=== PATIENT | male | born 1970 | race Caucasian/White ===

== ENCOUNTER 2022-07-16 19:57 | Inpatient (IN) | payer BC ==
[2022-07-16] MEDS ORDERED: SODIUM CHLORIDE 0.9% 1,000 ML IV STA (20:22)
--- NOTE | 2022-07-16 20:35 | ED ---
General Adult HPI - General Chief complaint: Seizure Stated complaint: Seizure Time Seen by Provider: 07/16/22 20:22 Source: patient Mode of arrival: EMS - History of Present Illness Initial comments: Dictation was produced using [employer] dictation software. please excuse any grammatical, word or spelling errors. Chief Complaint: 51-year-old male presents emergency department after seizure History of Present Illness: Patient is a 51-year-old male has past medical history of hypertension. Patient is brought to the emergency department after having witnessed seizure. Patient has a seizure at home witnessed by son. Son states that it was approximately 10 seconds. He was postictal per EMS several minutes after the seizure. Patient was recently admitted to the hospital for seizure. According to EMR patient patient's seizure was likely secondary to h ypovolemic hyponatremia and perhaps alcohol withdrawal. Patient had a EKG that was unremarkable. Patient states he woke up with some nausea this morning. Patient states that he does not drink alcohol excessively. Denies any pain complaints. No shortness of breath. The ROS documented in this emergency department record has been reviewed and confirmed by me. Those systems with pertinent positive or negative responses have been documented in the HPI. All other systems are other negative and/or noncontributory. PHYSICAL EXAM: General Impression: Alert and oriented x3, not in acute distress HEENT: Normocephalic atraumatic, extra-ocular movements intact, pupils equal and reactive to light bilaterally, mucous membranes moist, right lateral tongue avulsion Cardiovascular: Heart regular rate and rhythm Chest: Able to complete full sentences, no retractions, no tachypnea Abdomen: abdomen soft, non-tender, non-distended, no organomegaly Musculoskeletal: Pulses present and equal in all extremities, no peripheral edema Motor: no focal deficits noted Neurological: CN II-XII grossly intact, no focal motor or sensory deficits noted Skin: Intact with no visualized rashes Psych: Normal affect and mood ED course: 51-year-old male presents to the emergency department for seizure. Patient was recently admitted to the hospital one month ago for seizure. According to EMR patient seizures secondary to a call withdrawal versus hyponatremia. He was not started on antiepileptic medications. Vital signs upon arrival are within acceptable limits. Laboratory evaluation obtained. CBC unremarkable. Metabolic panel shows sodium 120. Lactic acidosis 3.5 likely represents recent seizure. Urine drug screen is negative. Patient reevaluated bedside at 11:00 PM. Patient reports that he feels well. Case is discussed with nephrology who requests that sodium chloride IV fluids at 60 mL an hour and to do scheduled basic metabolic panel. Dr. Keys would like to be contacted when his sodium reaches is 126. Patient admitted to [facility] hospitalist group. Neurology consulted. Dr. Keys called back requested that patient have a metabolic panel drawn down if his sodium is less than when he initially arrived that patient be given 3% sodium. EKG interpretation: Ventricular rate 105, sinus tachycardia,. Interval 129, QS 105, QTC 422. No DC prolongation, no QTC prolongation, no ST or T-wave changes noted. EKG compared to 06/22/2022 showing no changes. Overall, this EKG is unremarkable - Related Data Home Medications Medication Instructions Recorded Confirmed Magnesium(Unknown) 1 tab PO DAILY 06/22/22 07/16/22 Rizatriptan Odt [Maxalt STORE STOCKER] 10 mg PO DAILY PRN 06/22/22 07/16/22 amLODIPine [Norvasc] 10 mg PO DAILY 06/22/22 07/16/22 Previous Rx's Medication Instructions Recorded Thiamine [Vitamin B-1] 100 mg PO DAILY tab 07/19/22 levETIRAcetam [Keppra] 500 mg PO Q12HR 30 Days #60 tab 07/19/22 Allergies Allergy/AdvReac Type Severity Reaction Status Date / Time No Known Allergies Allergy Verified 07/16/22 20:04 Review of Systems ROS Statement: Those systems with pertinent positive or pertinent negative responses have been documented in the HPI. ROS Other: All systems not noted in ROS Statement are negative. Past Medical History Past Medical History: Hypertension Additional Past Medical History / Comment(s): Migraine MATHIS, Essential tremor History of Any Multi-Drug Resistant Organisms: None Reported Past Surgical History: Unable to Obtain Additional Past Surgical History / Comment(s): vasecotmy Past Anesthesia/Blood Transfusion Reactions: No Reported Reaction Past Psychological History: No Psychological Hx Reported Smoking Status: Current every day smoker Past Alcohol Use History: Daily Past Drug Use History: None Reported - Past Family History Father Family Medical History: Dementia Additional Family Medical History / Comment(s): Father is 82 yrs old. Mother Family Medical History: Hypertension Additional Family Medical History / Comment(s): Mother is 79yrs old. Course Vital Signs 07/16/22 07/16/22 07/16/22 19:58 21:00 22:00 Temperature 97.9 F Pulse Rate 112 H 104 H 102 H Respiratory 18 16 16 Rate Blood Pressure 170/99 156/125 164/105 O2 Sat by Pulse 98 96 97 Oximetry 07/16/22 07/17/22 07/17/22 23:00 08:20 09:08 Temperature Pulse Rate 103 H 85 97 Respiratory 16 18 18 Rate Blood Pressure 117/96 160/84 149/73 O2 Sat by Pulse 96 98 96 Oximetry Medical Decision Making - Lab Data Result diagrams: 07/19/22 06:19 07/19/22 06:19 Lab Results 07/16/22 07/16/22 07/16/22 Range/Units 20:53 20:53 20:53 WBC 8.3 (3.8-10.6) k/uL RBC 3.98 L (4.30-5.90) m/uL Hgb 13.2 (13.0-17.5) gm/dL Hct 37.5 L (39.0-53.0) % MCV 94.3 (80.0-100.0) fL MCH 33.2 (25.0-35.0) pg MCHC 35.2 (31.0-37.0) g/dL RDW 11.5 (11.5-15.5) % Plt Count 108 L (150-450) k/uL MPV 7.4 Neutrophils % 88 % Lymphocytes % 4 % Monocytes % 7 % Eosinophils % 0 % Basophils % 0 % Neutrophils # 7.3 (1.3-7.7) k/uL Lymphocytes # 0.4 L (1.0-4.8) k/uL Monocytes # 0.6 (0-1.0) k/uL Eosinophils # 0.0 (0-0.7) k/uL Basophils # 0.0 (0-0.2) k/uL Sodium 120 L (137-145) mmol/L Potassium 3.6 (3.5-5.1) mmol/L Chloride 85 L (98-107) mmol/L Carbon Dioxide 25 (22-30) mmol/L Anion Gap 10 mmol/L BUN 3 L (9-20) mg/dL Creatinine 0.53 L (0.66-1.25) mg/dL Est GFR (CKD-EPI)AfAm >90 (>60 ml/min/1.73 sqM) Est GFR (CKD-EPI)NonAf >90 (>60 ml/min/1.73 sqM) Glucose 130 H (74-99) mg/dL Lactic Ac Sepsis Rflx Plasma Lactic Acid Edmond 3.5 H* (0.7-2.0) mmol/L Calcium 8.6 (8.4-10.2) mg/dL Magnesium 1.9 (1.6-2.3) mg/dL Total Bilirubin 1.2 (0.2-1.3) mg/dL AST 61 H (17-59) U/L ALT 50 H (4-49) U/L Alkaline Phosphatase 93 (38-126) U/L Total Protein 6.2 L (6.3-8.2) g/dL Albumin 4.2 (3.5-5.0) g/dL Urine Opiates Screen (NotDetected) Ur Oxycodone Screen (NotDetected) Urine Methadone Screen (NotDetected) Ur Propoxyphene Screen (NotDetected) Ur Barbiturates Screen (NotDetected) U Tricyclic Antidepress (NotDetected) Ur Phencyclidine Scrn (NotDetected) Ur Amphetamines Screen (NotDetected) U Methamphetamines Scrn (NotDetected) U Benzodiazepines Scrn (NotDetected) Urine Cocaine Screen (NotDetected) U Marijuana (THC) Screen (NotDetected) 07/16/22 07/16/22 Range/Units 21:33 21:45 WBC (3.8-10.6) k/uL RBC (4.30-5.90) m/uL Hgb (13.0-17.5) gm/dL Hct (39.0-53.0) % MCV (80.0-100.0) fL MCH (25.0-35.0) pg MCHC (31.0-37.0) g/dL RDW (11.5-15.5) % Plt Count (150-450) k/uL MPV Neutrophils % % Lymphocytes % % Monocytes % % Eosinophils % % Basophils % % Neutrophils # (1.3-7.7) k/uL Lymphocytes # (1.0-4.8) k/uL Monocytes # (0-1.0) k/uL Eosinophils # (0-0.7) k/uL Basophils # (0-0.2) k/uL Sodium (137-145) mmol/L Potassium (3.5-5.1) mmol/L Chloride (98-107) mmol/L Carbon Dioxide (22-30) mmol/L Anion Gap mmol/L BUN (9-20) mg/dL Creatinine (0.66-1.25) mg/dL Est GFR (CKD-EPI)AfAm (>60 ml/min/1.73 sqM) Est GFR (CKD-EPI)NonAf (>60 ml/min/1.73 sqM) Glucose (74-99) mg/dL Lactic Ac Sepsis Rflx Y Plasma Lactic Acid Edmond (0.7-2.0) mmol/L Calcium (8.4-10.2) mg/dL Magnesium (1.6-2.3) mg/dL Total Bilirubin (0.2-1.3) mg/dL AST (17-59) U/L ALT (4-49) U/L Alkaline Phosphatase (38-126) U/L Total Protein (6.3-8.2) g/dL Albumin (3.5-5.0) g/dL Urine Opiates Screen Not Detected (NotDetected) Ur Oxycodone Screen Not Detected (NotDetected) Urine Methadone Screen Not Detected (NotDetected) Ur Propoxyphene Screen Not Detected (NotDetected) Ur Barbiturates Screen Not Detected (NotDetected) U Tricyclic Antidepress Not Detected (NotDetected) Ur Phencyclidine Scrn Not Detected (NotDetected) Ur Amphetamines Screen Not Detected (NotDetected) U Methamphetamines Scrn Not Detected (NotDetected) U Benzodiazepines Scrn Not Detected (NotDetected) Urine Cocaine Screen Not Detected (NotDetected) U Marijuana (THC) Screen Not Detected (NotDetected) Disposition Clinical Impression: Seizure, Hyponatremia Disposition: ADMITTED IP TO THIS HOSP
[2022-07-16 21:06] LABS: Basophils % (A) 0 %; Eosinophils % (A) 0 %; HCT 37.5 % (39.0-53.0); HGB 13.2 gm/dL (13.0-17.5); Lymphocytes # (A) 0.4 k/uL (1.0-4.8); Lymphocytes % (A) 4 %; MCH 33.2 pg (25.0-35.0); MCHC 35.2 g/dL (31.0-37.0); MCV 94.3 fL (80.0-100.0); Mean Platelet Volume 7.4; Monocytes # (A) 0.6 k/uL (0-1.0); Monocytes % (A) 7 %; Neutrophils # (A) 7.3 k/uL (1.3-7.7); Neutrophils % (A) 88 %; Platelet Count 108 k/uL (150-450); RBC 3.98 m/uL (4.30-5.90); RDW 11.5 % (11.5-15.5); WBC 8.3 k/uL (3.8-10.6)
[2022-07-16 21:26] LABS: ALT 50 U/L (4-49); AST 61 U/L (17-59); African American GFR (CKD) >90 (>60 ml/min/1.73 sqM); Albumin 4.2 g/dL (3.5-5.0); Alkaline Phosphatase 93 U/L (38-126); Anion Gap 10 mmol/L; Blood Urea Nitrogen 3 mg/dL (9-20); Calcium 8.6 mg/dL (8.4-10.2); Carbon Dioxide 25 mmol/L (22-30); Chloride 85 mmol/L (98-107); Glucose 130 mg/dL (74-99); Magnesium 1.9 mg/dL (1.6-2.3); Non-African American GFR(CKD) >90 (>60 ml/min/1.73 sqM); Potassium 3.6 mmol/L (3.5-5.1); Sodium 120 mmol/L (137-145); Total Bilirubin 1.2 mg/dL (0.2-1.3); Total Protein 6.2 g/dL (6.3-8.2)
[2022-07-16 22:41] LABS: Amphetamine Screen,Urine Not Detected (NotDetected); Barbiturate Screen,Urine Not Detected (NotDetected); Benzodiazepines Screen,Urine Not Detected (NotDetected); Cocaine Screen,Urine Not Detected (NotDetected); Methadone Screen, Urine Not Detected (NotDetected); Opiate Screen,Urine Not Detected (NotDetected); Oxycodone Screen, Urine Not Detected (NotDetected); Phencyclidine Screen,Urine Not Detected (NotDetected); Tricyclic Antidepressant,Urine Not Detected (NotDetected); Urn Cannabinoid Scrn Not Detected (NotDetected)
[2022-07-16] MEDS ORDERED: NALOXONE 0.4 MG/ML 1 ML VIAL IV PRN (22:54)
[2022-07-16] MEDS ORDERED: ONDANSETRON 4 MG/2 ML VIAL IVP PRN (22:54)
[2022-07-16] MEDS ORDERED: SODIUM CHLORIDE 0.9% 1,000 ML IV SCH (23:00)
[2022-07-16 23:44] LABS: African American GFR (CKD) >90 (>60 ml/min/1.73 sqM); Anion Gap 8 mmol/L; Blood Urea Nitrogen 4 mg/dL (9-20); Calcium 8.9 mg/dL (8.4-10.2); Carbon Dioxide 25 mmol/L (22-30); Chloride 95 mmol/L (98-107); Glucose 117 mg/dL (74-99); Non-African American GFR(CKD) >90 (>60 ml/min/1.73 sqM); Potassium 3.6 mmol/L (3.5-5.1); Sodium 128 mmol/L (137-145)
[2022-07-17 02:29] LABS: African American GFR (CKD) >90 (>60 ml/min/1.73 sqM); Anion Gap 7 mmol/L; Blood Urea Nitrogen 3 mg/dL (9-20); Calcium 9.1 mg/dL (8.4-10.2); Carbon Dioxide 27 mmol/L (22-30); Chloride 96 mmol/L (98-107); Glucose 98 mg/dL (74-99); Non-African American GFR(CKD) >90 (>60 ml/min/1.73 sqM); Potassium 3.4 mmol/L (3.5-5.1); Sodium 130 mmol/L (137-145)
[2022-07-17] MEDS ORDERED: DEXTROSE 5%-0.9% NACL 1,000 ML IV SCH (02:30)
[2022-07-17 06:09] LABS: African American GFR (CKD) >90 (>60 ml/min/1.73 sqM); Anion Gap 6 mmol/L; Blood Urea Nitrogen 3 mg/dL (9-20); Calcium 8.7 mg/dL (8.4-10.2); Carbon Dioxide 28 mmol/L (22-30); Chloride 98 mmol/L (98-107); Glucose 95 mg/dL (74-99); Non-African American GFR(CKD) >90 (>60 ml/min/1.73 sqM); Potassium 3.5 mmol/L (3.5-5.1); Sodium 132 mmol/L (137-145)
[2022-07-17] MEDS ORDERED: POTASSIUM CHLORIDE ER 20 MEQ TAB.ER PO STA (07:12)
[2022-07-17] MEDS: DEXTROSE 5% IN WATER 1,000 ML IV SCH ×3 (09:02→23:04)
--- NOTE | 2022-07-17 10:09 | P.NPCON ---
History of Present Illness - Reason for Consult hyponatremia - History of Present Illness Reason for consultation: Hyponatremia History of present illness: Patient is a 51-year-old male seen in renal consultation for hyponatremia. Patient's sodium level on admission was 120 as of 07/16/2022 at 8:53 PM. Patient received 1 L bolus of normal saline and was subsequently started on normal saline at 60 mL an hour. Patient states he did have a brief seizure prior to admission. No seizures since in the hospital. Sodium level about 3 hours later came back at 128 and I advised to stop the normal saline and start D5W at 50 mL an hour. However this was never done and I'm not sure why. This morning patient's sodium level is 132. I have started him on D5W at 1 50 mL an hour. Patient states his oral intake has been poor the last few days. He had been vomiting prior to admission. No diarrhea. Denies recent alcohol abuse. He has been drinking quite a bit of fluids including 2 bottles of Gatorade in 3- 4 bottles of water on a daily basis. He denies use of nonsteroidals. Denies history of malignancy. Denies use of thiazide diuretics. No chest pain or shortness of breath. Good urine output. No hematuria. Denies history of kidney disease. Vital signs are stable. General: Awake. No acute distress. HEENT: Head exam is unremarkable. LUNGS: Breath sounds decreased. HEART: Rate and Rhythm are regular. ABDOMEN: Soft, no distention. EXTREMITITES: No edema. Past Medical History Past Medical History: Hypertension Additional Past Medical History / Comment(s): Migraine MATHIS, Essential tremor History of Any Multi-Drug Resistant Organisms: None Reported Past Surgical History: Unable to Obtain Additional Past Surgical History / Comment(s): vasecotmy Past Anesthesia/Blood Transfusion Reactions: No Reported Reaction Past Psychological History: No Psychological Hx Reported Smoking Status: Current every day smoker Past Alcohol Use History: Daily Past Drug Use History: None Reported - Past Family History Father Family Medical History: Dementia Additional Family Medical History / Comment(s): Father is 82 yrs old. Mother Family Medical History: Hypertension Additional Family Medical History / Comment(s): Mother is 79yrs old. Medications and Allergies Home Medications Medication Instructions Recorded Confirmed Type Magnesium(Unknown) 1 tab PO DAILY 06/22/22 07/16/22 History Rizatriptan Odt [Maxalt RESERVE OPERATOR] 10 mg PO DAILY PRN 06/22/22 07/16/22 History amLODIPine [Norvasc] 10 mg PO DAILY 06/22/22 07/16/22 History Allergies Allergy/AdvReac Type Severity Reaction Status Date / Time No Known Allergies Allergy Verified 07/16/22 20:04 Physical Exam Vitals: Vital Signs Temp Pulse Resp BP Pulse Ox 07/17/22 09:08 97 18 149/73 96 07/17/22 08:20 85 18 160/84 98 07/16/22 23:00 103 H 16 117/96 96 07/16/22 22:00 102 H 16 164/105 97 07/16/22 21:00 104 H 16 156/125 96 07/16/22 19:58 97.9 F 112 H 18 170/99 98 Intake and Output 07/16/22 07/17/22 07/17/22 22:59 06:59 14:59 Output Total 900 Balance -900 Output: Urine 900 Other: Weight 68.039 kg Results - Lab Results Most recent lab results Calcium 8.7 mg/dL (8.4-10.2) 07/17/22 05:41 Magnesium 1.9 mg/dL (1.6-2.3) 07/16/22 20:53 07/16/22 20:53 07/17/22 05:41 Assessment and Plan Plan: Assessment: 1. Hypovolemic hyponatremia with component of poor solute intake. Sodium level was 120 on admission on 07/16/2022 at 8:53 PM. This morning it is 132. 2. Hypokalemia from poor intake. 3. Seizure prior to admission. Likely from hyponatremia. 4. Benign hypertension. Currently stable. Plan: Maintain D5W at 150 mL an hour. Potassium replaced. Check magnesium level as well. Repeat sodium level at 11:30 AM. Check serum and urine osmolality and urine sodium level. Check TSH. Thank you for the consultation. I will continue to follow patient with you during his hospital stay.
[2022-07-17 10:37] LABS: Magnesium 1.9 mg/dL (1.6-2.3)
--- NOTE | 2022-07-17 14:16 | P.CNNES ---
History of Present Illness Consult date: 07/17/22 Requesting physician: Weston Alcantara Reason for Consult: seizure History of Present Illness: This is a 51-year-old gentleman with history of one-time episode of seizure and was felt was provoked due to hyponatremia and alcohol withdrawal, hypertension alcohol use presented emergency department on 07/16/2022 for a witnessed seizure. Some of the history is from the patient's son who is at bedside. The patient stated that he was at home with his son and then that the patient noticed that he's having some abdominal pain and had nausea and vomiting. Then went on the couch to sit and the next thing he remembers EMS. Per the son the patient was having shaking of all extremities lasting 7-10 seconds and then he was post ictal for possibly about 7-10 minutes. Patient had a tongue bite over the right lateral side. Denies any urinary or bowel incontinence to his knowledge. Per the patient is last drink was probably Wednesday or Wednesday and he has been drinking 1-212 ounce of alcohol. He drinks about 4 of 16 ounce of water daily and in past was drinking more water but has been trying to cut down. He has been cutting down on alcohol use. Of note the patient was evaluated by Dr. Mcdonough on 06/23/2022 because of a new onset seizure and he felt was provoked due to hyponatremia and alcohol withdrawal. The routine EEGs reported as normal. Please refer to his notes for further details. She stated that the he probably had in the springtime of 2021 at passing out episode and possible seizure since he does not recall what transpired while he was at work. He denies any family history of seizures. Some of the workup during this hospital visit consisted of: Patient is afebrile. Initial white blood cells 8.3 on presentation. Initial sodium is 120 and most recent sodium is 132 Initial glucose level is 130 Ammonia 23 Urine drug screen is not detected. Review of Systems Review of system: The 12 point system was reviewed and apparent positive and negative per HPI. Past Medical History Past Medical History: Hypertension Additional Past Medical History / Comment(s): Migraine MATHIS, Essential tremor History of Any Multi-Drug Resistant Organisms: None Reported Past Surgical History: Unable to Obtain Additional Past Surgical History / Comment(s): vasecotmy Past Anesthesia/Blood Transfusion Reactions: No Reported Reaction Past Psychological History: No Psychological Hx Reported Additional Psychological History / Comment(s): Pt resides alone unless his son is over to visit every other weekend. Pt is independent. Smoking Status: Current every day smoker Past Alcohol Use History: Daily Additional Past Alcohol Use History / Comment(s): Pt started smoking in 1988 and is a ppd smoker. pt states he drinks occasionally, 2-4 beers when he does drink but states he does not drink on a daily basis Past Drug Use History: None Reported - Past Family History Father Family Medical History: Dementia Additional Family Medical History / Comment(s): Father is 82 yrs old. Mother Family Medical History: Hypertension Additional Family Medical History / Comment(s): Mother is 79yrs old. Medications and Allergies Home Medications Medication Instructions Recorded Confirmed Type Magnesium(Unknown) 1 tab PO DAILY 06/22/22 07/16/22 History Rizatriptan Odt [Maxalt SWAHILI TEACHER] 10 mg PO DAILY PRN 06/22/22 07/16/22 History amLODIPine [Norvasc] 10 mg PO DAILY 06/22/22 07/16/22 History Allergies Allergy/AdvReac Type Severity Reaction Status Date / Time No Known Allergies Allergy Verified 07/16/22 20:04 Physical Examination - Vital Signs Vital Signs: Vital Signs Temp Pulse Pulse Resp BP BP Pulse Ox 07/17/22 10:44 96.5 F L 96 16 139/85 97 07/17/22 09:08 97 18 149/73 96 07/17/22 08:20 85 18 160/84 98 07/16/22 23:00 103 H 16 117/96 96 07/16/22 22:00 102 H 16 164/105 97 07/16/22 21:00 104 H 16 156/125 96 07/16/22 19:58 97.9 F 112 H 18 170/99 98 Intake and Output 07/16/22 07/17/22 07/17/22 22:59 06:59 14:59 Output Total 900 Balance -900 Output: Urine 900 Other: Weight 68.039 kg 68.039 kg GENERAL: The patient is lying in bed and is not in acute distress. CHEST: The heart rate is regular rate rhythm. No murmurs to auscultation. LUNG: Clear to auscultation bilaterally no wheezing noted throughout. Not labored breathing. ABDOMEN/GI: Bowel sounds present in all 4 quadrants. No tenderness to palpation throughout. NEUROLOGICAL: Higher mental function: The patient is awake, alert, oriented to self, place and time. Patient is following commands. No aphasia and no neglect. Cranial nerves: The pupils are round, equal and reactive to light and accommodation. Visual jama are full to confrontation throughout. Extraocular movement is intact no nystagmus is noted. Facial sensation is normal to touch throughout. The facial strength is normal throughout. Hearing is normal bilaterally to hand rub. Tongue is right lateral tongue bite nando. Move tongue midline and moved [id number] without any difficulty. No dysarthria is noted. Shoulder shrug is normal bilaterally. Motor: The strength is 5 over 5 throughout. Normal tone and bulk. Cerebellum: Normal finger to nose bilaterally. Sensation: Sensation is normal to touch throughout. Reflexes (right/left): 2+ throughout. Plantars are downgoing bilaterally. Results - Laboratory Findings CBC and BMP: 07/16/22 20:53 07/17/22 10:12 Abnormal Lab Findings: Abnormal Labs 07/16/22 07/16/22 07/16/22 20:53 20:53 20:53 RBC 3.98 L Hct 37.5 L Plt Count 108 L Lymphocytes # 0.4 L Sodium 120 L Potassium Chloride 85 L BUN 3 L Creatinine 0.53 L Glucose 130 H Osmolality Plasma Lactic Acid Edmond 3.5 H* AST 61 H ALT 50 H Total Protein 6.2 L 07/16/22 07/17/22 07/17/22 23:16 01:43 05:41 RBC Hct Plt Count Lymphocytes # Sodium 128 L 130 L 132 L Potassium 3.4 L Chloride 95 L 96 L BUN 4 L 3 L 3 L Creatinine 0.50 L 0.54 L 0.58 L Glucose 117 H Osmolality Plasma Lactic Acid Edmond AST ALT Total Protein 07/17/22 10:12 RBC Hct Plt Count Lymphocytes # Sodium 132 L Potassium Chloride BUN Creatinine Glucose Osmolality 272 L Plasma Lactic Acid Edmond AST ALT Total Protein Assessment and Plan Assessment: Recurrent Seizure seems possibly provoked due to hyponatremia (on presentation 120). Had prior seizure in 3rd week of june 2022 (EEG was reported as normal). It was felt provoked due to hyponatremia and alcohol withdrawal and stated possible has seizure in spring where he does not recall what transpired. Moderate hyponatremia: Na is 120 on presentation. Unsure exactly cause (possibly polydipsia and diet intake)--improving Alcohol use and been cutting down and last drink was this Wednesday or Wednesday. Plan: I ordered a repeat routine EEG and MRI Brain w/ and w/o I started the patient on Keppra 500 mg every 12 hours since patient continues to have recurrent seizures. Started on thiamine 100mg daily. Placed on seizure precaution and on seizure pads. Nephrology is consulted for hyponatremia. Will differ rest of medical management to primary team. Per the [place] DMV patient is to avoid driving for 6 month because of his seizure. To avoid the [place], avoid using her admission here and that is warm unassisted and this was relayed to the patient. Thank you for the consultation. Gerald Ford M.D. Neuro-Hospitalist. Time with Patient: Greater than 30
[2022-07-17] MEDS ORDERED: DESMOPRESSIN ACETATE 4 MCG/ML VIAL (MDV) IV ONE (15:00)
[2022-07-17] MEDS: THIAMINE 100 MG TAB PO SCH (15:15)
[2022-07-17] MEDS: levETIRAcetam 500 MG TAB PO SCH ×2 (15:18→19:55)
--- NOTE | 2022-07-17 16:04 | P.HPIM ---
History of Present Illness H&P Date: 07/17/22 Chief Complaint: Seizure 51-year-old male has past medical history of hypertension. Patient is brought to the emergency department after having witnessed seizure. Patient has a seizure at home witnessed by son. Son states that it was approximately 10 seconds. He was postictal per EMS several minutes after the seizure. Patient was recently admitted to the hospital for seizure. According to EMR patient patient's seizure was likely secondary to hypovolemic hyponatremia and perhaps alcohol withdrawal. Patient had a EKG that was unremarkable. Patient states he woke up with some nausea this morning. Patient states that he does not drink alcohol excessively. Denies any pain complaints. No shortness of breath. Patient was evaluated by neurology, Dr. Mcdonough on 06/23/2022 because of a new onset seizure and he felt was provoked due to hyponatremia and alcohol withdrawal. The routine EEGs reported as normal. He denies any family history of seizures. Workup completed in ED Initial white blood cells 8.3 on presentation. Initial sodium is 120 and most recent sodium is 132 Initial glucose level is 130 Ammonia 23 Urine drug screen is not detected. Review of Systems REVIEW OF SYSTEMS: CONSTITUTIONAL: No fever, no malaise, no fatigue. HEENT: No recent visual problems or hearing problems. Denied any sore throat. CARDIOVASCULAR: No chest pain, orthopnea, PND, no palpitations, no syncope. PULMONARY: No shortness of breath, no cough, no hemoptysis. GASTROINTESTINAL: No diarrhea, no nausea, no vomiting, no abdominal pain. NEUROLOGICAL: No headaches, no weakness, no numbness. HEMATOLOGICAL: Denies any bleeding or petechiae. GENITOURINARY: Denies any burning micturition, frequency, or urgency. MUSCULOSKELETAL/RHEUMATOLOGICAL: Denies any joint pain, swelling, or any muscle pain. ENDOCRINE: Denies any polyuria or polydipsia. The rest of the 14-point review of systems is negative. Past Medical History Past Medical History: Hypertension Additional Past Medical History / Comment(s): Migraine MATHIS, Essential tremor History of Any Multi-Drug Resistant Organisms: None Reported Past Surgical History: Unable to Obtain Additional Past Surgical History / Comment(s): vasecotmy Past Anesthesia/Blood Transfusion Reactions: No Reported Reaction Past Psychological History: No Psychological Hx Reported Additional Psychological History / Comment(s): Pt resides alone unless his son is over to visit every other weekend. Pt is independent. Smoking Status: Current every day smoker Past Alcohol Use History: Daily Additional Past Alcohol Use History / Comment(s): Pt started smoking in 1988 and is a ppd smoker. pt states he drinks occasionally, 2-4 beers when he does drink but states he does not drink on a daily basis Past Drug Use History: None Reported - Past Family History Father Family Medical History: Dementia Additional Family Medical History / Comment(s): Father is 82 yrs old. Mother Family Medical History: Hypertension Additional Family Medical History / Comment(s): Mother is 79yrs old. Medications and Allergies Home Medications Medication Instructions Recorded Confirmed Type Magnesium(Unknown) 1 tab PO DAILY 06/22/22 07/16/22 History Rizatriptan Odt [Maxalt [employer]] 10 mg PO DAILY PRN 06/22/22 07/16/22 History amLODIPine [Norvasc] 10 mg PO DAILY 06/22/22 07/16/22 History Allergies Allergy/AdvReac Type Severity Reaction Status Date / Time No Known Allergies Allergy Verified 07/16/22 20:04 Physical Exam Vitals: Vital Signs Temp Pulse Pulse Resp BP BP Pulse Ox 07/17/22 10:44 96.5 F L 96 16 139/85 97 07/17/22 09:08 97 18 149/73 96 07/17/22 08:20 85 18 160/84 98 07/16/22 23:00 103 H 16 117/96 96 07/16/22 22:00 102 H 16 164/105 97 07/16/22 21:00 104 H 16 156/125 96 07/16/22 19:58 97.9 F 112 H 18 170/99 98 Intake and Output 07/16/22 07/17/22 07/17/22 22:59 06:59 14:59 Output Total 900 Balance -900 Output: Urine 900 Other: Weight 68.039 kg 68.039 kg General appearance: Present: average body habitus, cooperative, no acute distress Eyes: Present: anicteric sclerae, EOMI, PERRLA, normal appearance Neck: Present: normal ROM. Absent: lymphadenopathy, rigidity, thyromegaly Carotids: negative: bruit present Thyroid: bilateral: normal size, negative: enlarged, nodule Respiratory: bilateral: CTA, negative: rales, rhonchi, wheezing Cardiovascular: regular: normal: S1, S2 General gastrointestinal: Present: normal bowel sounds, soft. Absent: distended, organomegaly, tenderness Integumentary: Present: normal turgor. Absent: jaundiced, rash, ulcer Neurologic: Present: CNII-XII intact. Absent: focal deficits Musculoskeletal: Present: gait normal, strength equal bilaterally Psychiatric: Present: A&O x's 3, appropriate affect, intact judgment & insight Results CBC & Chem 7: 07/16/22 20:53 07/17/22 14:11 Labs: Abnormal Lab Results - Last 24 Hours (Table) 07/16/22 07/16/22 07/16/22 Range/Units 20:53 20:53 20:53 RBC 3.98 L (4.30-5.90) m/uL Hct 37.5 L (39.0-53.0) % Plt Count 108 L (150-450) k/uL Lymphocytes # 0.4 L (1.0-4.8) k/uL Sodium 120 L (137-145) mmol/L Potassium (3.5-5.1) mmol/L Chloride 85 L (98-107) mmol/L BUN 3 L (9-20) mg/dL Creatinine 0.53 L (0.66-1.25) mg/dL Glucose 130 H (74-99) mg/dL Osmolality (280-301) mosm/kg Plasma Lactic Acid Edmond 3.5 H* (0.7-2.0) mmol/L AST 61 H (17-59) U/L ALT 50 H (4-49) U/L Total Protein 6.2 L (6.3-8.2) g/dL 07/16/22 07/17/22 07/17/22 Range/Units 23:16 01:43 05:41 RBC (4.30-5.90) m/uL Hct (39.0-53.0) % Plt Count (150-450) k/uL Lymphocytes # (1.0-4.8) k/uL Sodium 128 L 130 L 132 L (137-145) mmol/L Potassium 3.4 L (3.5-5.1) mmol/L Chloride 95 L 96 L (98-107) mmol/L BUN 4 L 3 L 3 L (9-20) mg/dL Creatinine 0.50 L 0.54 L 0.58 L (0.66-1.25) mg/dL Glucose 117 H (74-99) mg/dL Osmolality (280-301) mosm/kg Plasma Lactic Acid Edmond (0.7-2.0) mmol/L AST (17-59) U/L ALT (4-49) U/L Total Protein (6.3-8.2) g/dL 07/17/22 Range/Units 10:12 RBC (4.30-5.90) m/uL Hct (39.0-53.0) % Plt Count (150-450) k/uL Lymphocytes # (1.0-4.8) k/uL Sodium 132 L (137-145) mmol/L Potassium (3.5-5.1) mmol/L Chloride (98-107) mmol/L BUN (9-20) mg/dL Creatinine (0.66-1.25) mg/dL Glucose (74-99) mg/dL Osmolality 272 L (280-301) mosm/kg Plasma Lactic Acid Edmond (0.7-2.0) mmol/L AST (17-59) U/L ALT (4-49) U/L Total Protein (6.3-8.2) g/dL Thrombosis Risk Factor Assmnt - Choose All That Apply Any of the Below Risk Factors Present?: Yes Each Factor Represents 1 point: Age 41-60 years Other Risk Factors: No Thrombosis Risk Factor Assessment Total Risk Factor Score: 1 Thrombosis Risk Factor Assessment Level: Low Risk Assessment and Plan Assessment: 1. Recurrent seizures; likely provoked by severe hypernatremia and alcohol withdrawal - Patient does have history of seizures about 3 weeks Ago at which time EKG was done and it was normal - Neurology on board and recommending to repeat EEG and MRI of the brain with and without contrast - Patient has been placed on Keppra 500 mg every 12 hours; thiamine 100 mg daily - Seizure precautions in place 2. Critical hyponatremia; hypovolemic related to poor salt intake - Sodium was 120 upon admission and has improved to 132 - Nephrology on board and patient was placed on D5 water at 1 50 mL an hour - Monitor sodium levels closely along with acetaminophen urine osmolality and urine sodium level; order TSH 3. Hypokalemia; supplemented in ED; We will monitor electrolytes and make supplementation as needed 4. Hypertension; we will resume home dose of Norvasc 10 mg daily 5. Migraine headaches; continue with Maxalt 10 mg daily. Magnesium 1 tablet daily DVT prophylaxis; SCDs CODE STATUS; full code
--- NOTE | 2022-07-17 17:54 | XR ---
EXAMINATION TYPE: XR orbit pre-MRI foreign body DATE OF EXAM: 07/17/2022 COMPARISON: NONE HISTORY: Foreign body TECHNIQUE: 3 views FINDINGS: Orbital margins are intact. No evidence of radiopaque foreign body in the orbits. Maxilla i s intact. IMPRESSION: No evidence of foreign body.
[2022-07-17] MEDS: amLODIPine 10 MG TAB PO SCH (18:04)
--- NOTE | 2022-07-18 02:12 | EEG ---
ELECTROENCEPHALOGRAM REPORT CLINICAL HISTORY: This is a 51-year-old gentleman, who presented because of recurrent seizure-like episodes and had a witnessed seizure at home. The video EEG is obtained to evaluate for seizure epileptiform activity. RELEVANT MEDICATION: The patient is not on any seizure medication. EEG TYPE: A routine 21-channel EEG is performed with video using the 10/20 electrode placement system. DESCRIPTION: Wakefulness is only obtained. During awake state, the posterior-dominant rhythm consists of [id number] voltage of 8.5 to 9 hertz activity that is well modulated, and well sustained. There is no physiological sleep architecture. There is no focal slowing. ACTIVATION PROCEDURE: There is no photic driving and abnormality during the photic stimulation. Hyperventilation is not performed. CLINICAL INTERPRETATION: This is a normal routine EEG. There is no focal slowing, epileptiform discharge, or seizure on the EEG. Clinical correlation is recommended WHITLEY / LAM: [id number] / MTDD
[2022-07-18 08:23] LABS: Basophils % (A) 0 %; Eosinophils # (A) 0.2 k/uL (0-0.7); Eosinophils % (A) 3 %; HGB 12.6 gm/dL (13.0-17.5); Lymphocytes # (A) 1.2 k/uL (1.0-4.8); Lymphocytes % (A) 17 %; MCH 32.9 pg (25.0-35.0); MCV 96.9 fL (80.0-100.0); Mean Platelet Volume 8.6; Monocytes # (A) 0.3 k/uL (0-1.0); Monocytes % (A) 4 %; Neutrophils # (A) 5.6 k/uL (1.3-7.7); Neutrophils % (A) 76 %; RBC 3.82 m/uL (4.30-5.90); RDW 11.7 % (11.5-15.5); WBC 7.4 k/uL (3.8-10.6)
[2022-07-18 08:56] LABS: African American GFR (CKD) >90 (>60 ml/min/1.73 sqM); Anion Gap 6 mmol/L; Blood Urea Nitrogen 5 mg/dL (9-20); Calcium 8.7 mg/dL (8.4-10.2); Carbon Dioxide 27 mmol/L (22-30); Chloride 95 mmol/L (98-107); Glucose 84 mg/dL (74-99); Magnesium 1.7 mg/dL (1.6-2.3); Non-African American GFR(CKD) >90 (>60 ml/min/1.73 sqM); Potassium 3.4 mmol/L (3.5-5.1); Sodium 128 mmol/L (137-145)
[2022-07-18] MEDS: amLODIPine 10 MG TAB PO SCH (09:37)
[2022-07-18] MEDS: levETIRAcetam 500 MG TAB PO SCH ×2 (09:37→20:45)
[2022-07-18] MEDS: THIAMINE 100 MG TAB PO SCH (09:37)
[2022-07-18] MEDS ORDERED: POTASSIUM CHLORIDE ER 20 MEQ TAB.ER PO STA (10:12)
[2022-07-18] MEDS ORDERED: MAGNESIUM SULFATE-D5W PMX 1 GM in DEXTROSE/WATER 1 100ML.BAG IVPB ONE (10:12)
--- NOTE | 2022-07-18 10:15 | P.PN ---
Subjective patient is seen in follow-up for hyponatremia. Patient received a dose of DDAVP as well as D5W for a few hours yesterday to slow the correction of hyponatremia. Sodium level this morning is 128. Oral intake is good. No vomiting or diarrhea. No active complaints. Vital signs are stable. General: awake. No acute distress. HEENT: Head exam is unremarkable. LUNGS: Breath sounds decreased. HEART: Rate and Rhythm are regular. ABDOMEN: soft, no distention. EXTREMITITES: No edema. Objective - Vital Signs Vital signs: Vital Signs Temp 97.7 F 07/18/22 04:00 Pulse 103 H 07/18/22 04:00 Resp 18 07/18/22 04:00 BP 136/87 07/18/22 04:00 Pulse Ox 96 07/18/22 04:00 FiO2 Intake & Output 07/17/22 07/18/22 07/18/22 18:59 06:59 18:59 Intake Total 910 120 Output Total 0 Balance 910 120 Weight 68.039 kg 70 kg Intake: IV 550 Dextrose 5% in Water 1, 250 000 ml @ 125 mls/hr IV . Q8H LISA Rx#:[id number] Dextrose 5%-0.9% NaCl 1, 300 000 ml @ 150 mls/hr IV . Q6H40M LISA Rx#:[id number] Oral 360 120 Output: Urine 0 Stool 0 Urine/Stool Mix 0 Emesis 0 Other: Voiding Method Toilet Toilet # Voids 0 0 # Bowel Movements 0 - Labs CBC & Chem 7: 07/18/22 07:26 07/18/22 07:26 Labs: Abnormal Lab Results - Last 24 Hours (Table) 07/17/22 07/17/22 07/17/22 Range/Units 10:12 14:11 17:06 RBC (4.30-5.90) m/uL Hgb (13.0-17.5) gm/dL Hct (39.0-53.0) % Sodium 132 L 132 L 129 L (137-145) mmol/L Potassium (3.5-5.1) mmol/L Chloride (98-107) mmol/L BUN (9-20) mg/dL Creatinine (0.66-1.25) mg/dL Osmolality 272 L (280-301) mosm/kg 09/07/18/22 07/18/22 Range/Units 19:05 07:26 07:26 RBC 3.82 L (4.30-5.90) m/uL Hgb 12.6 L (13.0-17.5) gm/dL Hct 37.0 L (39.0-53.0) % Sodium 127 L 128 L (137-145) mmol/L Potassium 3.4 L (3.5-5.1) mmol/L Chloride 95 L (98-107) mmol/L BUN 5 L (9-20) mg/dL Creatinine 0.62 L (0.66-1.25) mg/dL Osmolality (280-301) mosm/kg Assessment and Plan Plan: Assessment: 1. Hypovolemic hyponatremia with component of poor solute intake. Sodium level was 120 on admission on 07/16/2022 at 8:53 PM. status post DDAVP and D5W to slow defraction. Sodium this morning is 128. urine sodium 68, urine osmolality to 28. TSH normal. 2. Hypokalemia from poor intake. 3. Seizure prior to admission. Likely from hyponatremia. no seizures since admission. 4. Benign hypertension. Currently stable. Plan: currently off IV fluids. encouraged oral intake. replace potassium and magnesium.
[2022-07-18 11:10] LABS: Platelet Count 85 k/uL (150-450)
[2022-07-18 11:11] LABS: RBC Morphology Normal
[2022-07-18] MEDS: DEXTROSE 5% IN WATER 1,000 ML IV SCH (12:40)
--- NOTE | 2022-07-18 13:55 | P.PN ---
Subjective Progress Note Date: 07/18/22 The patient is seen at bedside and he stated he is doing well and no further seizures or passing out episodes. Objective - Vital Signs Vital signs: Vital Signs Temp 97.7 F 07/18/22 04:00 Pulse 84 07/18/22 12:00 Resp 16 07/18/22 12:00 BP 117/76 07/18/22 12:00 Pulse Ox 99 07/18/22 12:00 FiO2 Intake & Output 07/17/22 07/18/22 07/18/22 18:59 06:59 18:59 Intake Total 910 240 Output Total 0 Balance 910 240 Weight 68.039 kg 70 kg Intake: IV 550 Dextrose 5% in Water 1, 250 000 ml @ 125 mls/hr IV . Q8H LISA Rx#:[id number] Dextrose 5%-0.9% NaCl 1, 300 000 ml @ 150 mls/hr IV . Q6H40M LISA Rx#:[id number] Oral 360 240 Output: Urine 0 Stool 0 Urine/Stool Mix 0 Emesis 0 Other: Voiding Method Toilet Toilet Toilet # Voids 0 0 # Bowel Movements 0 - Exam GENERAL: The patient is lying in bed and is not in acute distress. NEUROLOGICAL: Higher mental function: The patient is awake, alert, oriented to self, place and time. Patient is following commands. No aphasia and no neglect. Cranial nerves: The pupils are round, equal and reactive to light and accommodation. Visual jama are full to confrontation throughout. Extraocular movement is intact no nystagmus is noted. Facial sensation is normal to touch throughout. The facial strength is normal throughout. Hearing is normal bilaterally to hand rub. Tongue is right lateral tongue bite nando. Move tongue midline and moved [id number] without any difficulty. No dysarthria is noted. Shoulder shrug is normal bilaterally. Motor: The strength is 5 over 5 throughout. Normal tone and bulk. Cerebellum: Normal finger to nose bilaterally. Sensation: Sensation is normal to touch throughout. Reflexes (right/left): 2+ throughout. Plantars are downgoing bilaterally. Some of the workup during this hospital visit consisted of: Patient is afebrile. Initial sodium is 120 and most recent sodium is 128 TSH: 2.420 Ammonia 23 Urine drug screen is not detected. Routine EEG: Normal. There is no focal slowing, epileptiform discharges or seizure on the EEG. - Labs CBC & Chem 7: 07/18/22 07:26 07/18/22 07:26 Labs: Abnormal Lab Results - Last 24 Hours (Table) 07/17/22 07/17/22 07/17/22 Range/Units 14:11 17:06 19:05 RBC (4.30-5.90) m/uL Hgb (13.0-17.5) gm/dL Hct (39.0-53.0) % Plt Count (150-450) k/uL Sodium 132 L 129 L 127 L (137-145) mmol/L Potassium (3.5-5.1) mmol/L Chloride (98-107) mmol/L BUN (9-20) mg/dL Creatinine (0.66-1.25) mg/dL 07/18/22 07/18/22 Range/Units 07:26 07:26 RBC 3.82 L (4.30-5.90) m/uL Hgb 12.6 L (13.0-17.5) gm/dL Hct 37.0 L (39.0-53.0) % Plt Count 85 L (150-450) k/uL Sodium 128 L (137-145) mmol/L Potassium 3.4 L (3.5-5.1) mmol/L Chloride 95 L (98-107) mmol/L BUN 5 L (9-20) mg/dL Creatinine 0.62 L (0.66-1.25) mg/dL Assessment and Plan Assessment: Recurrent Seizure seems possibly provoked due to hyponatremia (on presentation 120). Had prior seizure in 3rd week of june 2022 (EEG was reported as normal). It was felt provoked due to hyponatremia and alcohol withdrawal and stated possible has seizure in spring where he does not recall what transpired. Moderate hyponatremia: Na is 120 on presentation. Unsure exactly cause (possibly polydipsia and diet intake)--improving Alcohol use and been cutting down and last drink was this Wednesday or Wednesday. Plan: Pending MRI Brain w/ and w/o seizure protocol. Continue Keppra 500 mg every 12 hours since patient continues to have recurrent seizures. I will defer his seizure medication to be modified as an outpatient by his neurologist Continue thiamine 100mg daily. On seizure precaution and on seizure pads. Nephrology is consulted for hyponatremia. Will differ rest of medical management to primary team. Per the [place] DMV patient is to avoid driving for 6 month because of his seizure. To avoid the [place], avoid using her admission here and that is warm unassisted and this was relayed to the patient. If MR the brain is negative, then patient is clear for discharge from a neurologic perspective. Plan discussed with the patient's nurse. Gerald Ford M.D. Neuro-Hospitalist. Time with Patient: Less than 30
--- NOTE | 2022-07-18 15:20 | MR ---
EXAMINATION TYPE: MR brain wo/w con DATE OF EXAM: 07/18/2022 COMPARISON: None HISTORY: Seizure. CONTRAST: Standard multiplanar, multisequence MRI departmental protocol images were obtained without contrast a nd with 7 mL intravenous Gadavist gadolinium contrast. The ventricles have normal size. There is no mass effect or midline shift. No sign of intracranial he morrhage. Diffusion images show no sign of an acute infarct. Sella turcica appears normal. No evidence of orbital mass. Brainstem appears intact. Coulter-white matte r structures have a normal signal pattern. No evidence of cerebral edema. Contrast images show normal enhancement of the venous sinuses. There is no pathologic enhancement. IMPRESSION: Negative MR scan of the brain.
[2022-07-19 06:57] LABS: Basophils % (A) 0 %; Eosinophils # (A) 0.2 k/uL (0-0.7); Eosinophils % (A) 3 %; HCT 39.5 % (39.0-53.0); HGB 12.9 gm/dL (13.0-17.5); Lymphocytes # (A) 1.2 k/uL (1.0-4.8); Lymphocytes % (A) 22 %; MCH 31.5 pg (25.0-35.0); MCHC 32.7 g/dL (31.0-37.0); MCV 96.3 fL (80.0-100.0); Mean Platelet Volume 8.7; Monocytes # (A) 0.5 k/uL (0-1.0); Monocytes % (A) 8 %; Neutrophils # (A) 3.7 k/uL (1.3-7.7); Neutrophils % (A) 65 %; RDW 11.2 % (11.5-15.5); WBC 5.7 k/uL (3.8-10.6)
[2022-07-19 07:07] LABS: Platelet Count 81 k/uL (150-450)
[2022-07-19 07:21] LABS: African American GFR (CKD) >90 (>60 ml/min/1.73 sqM); Anion Gap 8 mmol/L; Blood Urea Nitrogen 8 mg/dL (9-20); Calcium 9.1 mg/dL (8.4-10.2); Carbon Dioxide 26 mmol/L (22-30); Chloride 98 mmol/L (98-107); Glucose 93 mg/dL (74-99); Magnesium 1.9 mg/dL (1.6-2.3); Non-African American GFR(CKD) >90 (>60 ml/min/1.73 sqM); Potassium 4.1 mmol/L (3.5-5.1); Sodium 132 mmol/L (137-145)
[2022-07-19] MEDS: THIAMINE 100 MG TAB PO SCH (08:35)
[2022-07-19] MEDS: amLODIPine 10 MG TAB PO SCH (08:35)
[2022-07-19] MEDS: levETIRAcetam 500 MG TAB PO SCH (08:35)
[2022-07-19 08:39] VITALS: BP 147/98; PULSE 97; RESP 16; TEMP 97.8
--- NOTE | 2022-07-19 09:26 | P.PN ---
Subjective patient is seen in follow-up for hyponatremia. sodium level 132 this morning. Oral intake is good. No vomiting or diarrhea. No active complaints. Vital signs are stable. General: awake. No acute distress. HEENT: Head exam is unremarkable. LUNGS: Breath sounds decreased. HEART: Rate and Rhythm are regular. ABDOMEN: soft, no distention. EXTREMITITES: No edema. Objective - Vital Signs Vital signs: Vital Signs Temp 97.8 F 07/19/22 08:38 Pulse 97 07/19/22 08:38 Resp 16 07/19/22 08:38 BP 147/98 07/19/22 08:38 Pulse Ox 98 07/19/22 08:38 FiO2 Intake & Output 07/18/22 07/19/22 07/19/22 18:59 06:59 18:59 Intake Total 360 243 Output Total 0 Balance 360 243 Weight 65.5 kg Intake: IV 5 Invasive Line 1 5 Oral 360 238 Output: Urine 0 Stool 0 Urine/Stool Mix 0 Emesis 0 Other: Voiding Method Toilet Toilet Toilet # Voids 1 1 1 # Bowel Movements 0 - Labs CBC & Chem 7: 07/19/22 06:19 07/19/22 06:19 Labs: Abnormal Lab Results - Last 24 Hours (Table) 07/18/22 07/19/22 07/19/22 Range/Units 07:26 06:19 06:19 RBC 4.10 L (4.30-5.90) m/uL Hgb 12.9 L (13.0-17.5) gm/dL RDW 11.2 L (11.5-15.5) % Plt Count 85 L 81 L (150-450) k/uL Sodium 132 L (137-145) mmol/L BUN 8 L (9-20) mg/dL Assessment and Plan Plan: Assessment: 1. Hypovolemic hyponatremia with component of poor solute intake. Sodium level was 120 on admission on 07/16/2022 at 8:53 PM. status post DDAVP and D5W to slow defraction this admission. Sodium this morning is 132. urine sodium 68, urine osmolality to 28. TSH normal. 2. Hypokalemia from poor intake. 3. Seizure prior to admission. Likely from hyponatremia. no seizures since admission. 4. Benign hypertension. Currently stable. Plan: encouraged oral intake. follow up outpatient in 1 week.
--- NOTE | 2022-07-19 09:29 | P.PN ---
Subjective Progress Note Date: 07/18/22 51-year-old male has past medical history of hypertension. Patient is brought to the emergency department after having witnessed seizure. Patient has a seizure at home witnessed by son. Son states that it was approximately 10 seconds. He was postictal per EMS several minutes after the seizure. Patient was recently admitted to the hospital for seizure. According to EMR patient patient's seizure was likely secondary to hypovolemic hyponatremia and perhaps alcohol withdrawal. Patient had a EKG that was unremarkable. Patient states he woke up with some nausea this morning. Patient states that he does not drink alcohol excessively. Denies any pain complaints. No shortness of breath. Patient was evaluated by neurology, Dr. Mcdonough on 06/23/2022 because of a new onset seizure and he felt was provoked due to hyponatremia and alcohol withdrawal. The routine EEGs reported as normal. He denies any family history of seizures. Workup completed in ED Initial white blood cells 8.3 on presentation. Initial sodium is 120 and most recent sodium is 132 Initial glucose level is 130 Ammonia 23 Urine drug screen is not detected. Objective - Vital Signs Vital signs: Vital Signs Temp 97.7 F 07/18/22 04:00 Pulse 103 H 07/18/22 04:00 Resp 18 07/18/22 04:00 BP 136/87 07/18/22 04:00 Pulse Ox 96 07/18/22 04:00 FiO2 Intake & Output 07/17/22 07/18/22 07/18/22 18:59 06:59 18:59 Intake Total 910 120 Output Total 0 Balance 910 120 Weight 68.039 kg 70 kg Intake: IV 550 Dextrose 5% in Water 1, 250 000 ml @ 125 mls/hr IV . Q8H LISA Rx#:[id number] Dextrose 5%-0.9% NaCl 1, 300 000 ml @ 150 mls/hr IV . Q6H40M LISA Rx#:[id number] Oral 360 120 Output: Urine 0 Stool 0 Urine/Stool Mix 0 Emesis 0 Other: Voiding Method Toilet Toilet # Voids 0 0 # Bowel Movements 0 - Exam General appearance: Present: average body habitus, cooperative, no acute distress Eyes: Present: anicteric sclerae, EOMI, PERRLA, normal appearance Neck: Present: normal ROM. Absent: lymphadenopathy, rigidity, thyromegaly Carotids: negative: bruit present Thyroid: bilateral: normal size, negative: enlarged, nodule Respiratory: bilateral: CTA, negative: rales, rhonchi, wheezing Cardiovascular: regular: normal: S1, S2 General gastrointestinal: Present: normal bowel sounds, soft. Absent: distended, organomegaly, tenderness Integumentary: Present: normal turgor. Absent: jaundiced, rash, ulcer Neurologic: Present: CNII-XII intact. Absent: focal deficits Musculoskeletal: Present: gait normal, strength equal bilaterally Psychiatric: Present: A&O x's 3, appropriate affect, intact judgment & insight - Labs CBC & Chem 7: 07/19/22 06:19 07/19/22 06:19 Labs: Abnormal Lab Results - Last 24 Hours (Table) 07/17/22 07/17/22 07/17/22 Range/Units 10:12 14:11 17:06 RBC (4.30-5.90) m/uL Hgb (13.0-17.5) gm/dL Hct (39.0-53.0) % Sodium 132 L 132 L 129 L (137-145) mmol/L Potassium (3.5-5.1) mmol/L Chloride (98-107) mmol/L BUN (9-20) mg/dL Creatinine (0.66-1.25) mg/dL Osmolality 272 L (280-301) mosm/kg 07/17/22 07/18/22 07/18/22 Range/Units 19:05 07:26 07:26 RBC 3.82 L (4.30-5.90) m/uL Hgb 12.6 L (13.0-17.5) gm/dL Hct 37.0 L (39.0-53.0) % Sodium 127 L 128 L (137-145) mmol/L Potassium 3.4 L (3.5-5.1) mmol/L Chloride 95 L (98-107) mmol/L BUN 5 L (9-20) mg/dL Creatinine 0.62 L (0.66-1.25) mg/dL Osmolality (280-301) mosm/kg Assessment and Plan Assessment: 1. Recurrent seizures; likely provoked by severe hypernatremia and alcohol withdrawal - Patient does have history of seizures about 3 weeks Ago at which time EKG was done and it was normal - Neurology on board and recommending to repeat EEG and MRI of the brain with and without contrast - Patient has been placed on Keppra 500 mg every 12 hours; thiamine 100 mg daily - Seizure precautions in place 2. Critical hyponatremia; hypovolemic related to poor salt intake - Sodium was 120 upon admission and has improved to 132 - Nephrology on board and patient was placed on D5 water at 1 50 mL an hour - Monitor sodium levels closely along with acetaminophen urine osmolality and urine sodium level; order TSH 3. Hypokalemia; supplemented in ED; We will monitor electrolytes and make supplementation as needed 4. Hypertension; we will resume home dose of Norvasc 10 mg daily 5. Migraine headaches; continue with Maxalt 10 mg daily. Magnesium 1 tablet daily DVT prophylaxis; SCDs CODE STATUS; full code
== END 2022-07-19 10:32 | disposition home or self-care (01) | DRG 641 ==
LOC: EC 19:57 → 3SCARD 22:54
PROVIDERS: ADMIT Internal Medicine; ATTEND Internal Medicine
DX: E87.1 Hypo-osmolality and hyponatremia (principal); R56.9 Unspecified convulsions; E86.1 Hypovolemia; E87.2 Acidosis; E87.6 Hypokalemia; F17.210 Nicotine dependence, cigarettes, uncomplicated; G43.909 Migraine, unspecified, not intractable, without status migrainosus; S01.552A Open bite of oral cavity, initial encounter; I10 Essential (primary) hypertension; Z79.899 Other long term (current) drug therapy; Z82.49 Family history of ischemic heart disease and other diseases of the circulatory system; Z60.2 Problems related to living alone; Z28.310 Unvaccinated for COVID-19; Z28.21 Immunization not carried out because of patient refusal
CPT/HCPCS: 36415; 70030; 70553; 80048; 80053; 80306; 82140; 83605; 83735; 83930; 83935; 84295; 84300; 84443; 85025; 93005; 95816; 96360; 96361; 99285

== ENCOUNTER 2023-03-23 09:44 | Emergency (ER) | payer BC ==
[2023-03-23 10:00] VITALS: TEMP 98.2
[2023-03-23] MEDS ORDERED: SODIUM CHLORIDE 0.9% 1,000 ML IV STA (10:15)
[2023-03-23] MEDS ORDERED: LORazepam 2 MG/ML INJ IV STA (10:20)
[2023-03-23] MEDS ORDERED: KETOROLAC 15 MG/ML 1 ML VIAL IVP STA (10:20)
--- NOTE | 2023-03-23 10:25 | ED ---
Alcohol HPI - General Chief Complaint: Alcohol Stated Complaint: alcohol withdrawls Time Seen by Provider: 03/23/23 09:58 Source: patient, EMS Mode of arrival: EMS Limitations: no limitations - History of Present Illness Initial Comments: This is a nontoxic 52-year-old male, alert and oriented 4, presents to the emergency room via EMS for alcohol withdrawal. Patient states that he broke up with his girlfriend last Wednesday and started drinking up to 12 beers a day. Went through 4 cases in 1 week. States called his employer's HR department and they recommended he come to the emergency room. States he drank 6 beers at 8:30 this morning and then called EMS. States he feels tremulous and wants rehab. Denies any seizures or loss of consciousness. No headaches. No nausea vomiting or abdominal pain. 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 Previous Visits for Alcohol Intoxication?: Yes Recent Trauma: No Associated Symptoms: denies other symptoms Treatments Prior to Arrival: none Chronic Alcohol Use: Yes - Related Data Home Medications Medication Instructions Recorded Confirmed Rizatriptan Odt [Maxalt NATURAL GAS TREATING UNIT OPERATOR] 10 mg PO DAILY PRN 06/22/22 03/23/23 amLODIPine [Norvasc] 10 mg PO DAILY 06/22/22 03/23/23 Cholecalciferol (Vitamin D3) 75 mcg PO DAILY 03/23/23 03/23/23 [Vitamin D3 (3000 Iu)] Magnesium Oxide [Magnesium] 500 mg PO HS 03/23/23 03/23/23 Previous Rx's Medication Instructions Recorded levETIRAcetam [Keppra] 500 mg PO Q12HR 30 Days #60 tab 07/19/22 Allergies Allergy/AdvReac Type Severity Reaction Status Date / Time No Known Allergies Allergy Verified 03/23/23 12:00 Review of Systems ROS Statement: Those systems with pertinent positive or pertinent negative responses have been documented in the HPI. ROS Other: All systems not noted in ROS Statement are negative. Past Medical History Past Medical History: Hypertension Additional Past Medical History / Comment(s): Migraine MATHIS, Essential tremor History of Any Multi-Drug Resistant Organisms: None Reported Past Surgical History: Unable to Obtain Additional Past Surgical History / Comment(s): vasecotmy Past Anesthesia/Blood Transfusion Reactions: No Reported Reaction Past Psychological History: No Psychological Hx Reported Smoking Status: Current every day smoker Past Alcohol Use History: Daily Past Drug Use History: None Reported - Past Family History Father Family Medical History: Dementia Additional Family Medical History / Comment(s): Father is 82 yrs old. Mother Family Medical History: Hypertension Additional Family Medical History / Comment(s): Mother is 79yrs old. General Exam Limitations: no limitations General appearance: alert, in no apparent distress Head exam: Present: atraumatic, normocephalic Eye exam: Present: normal appearance, EOMI. Absent: scleral icterus, conjunctival injection, nystagmus ENT exam: Present: mucous membranes moist Neck exam: Present: full ROM. Absent: meningismus Respiratory exam: Absent: respiratory distress, accessory muscle use Cardiovascular Exam: Present: tachycardia GI/Abdominal exam: Present: soft Extremities exam: Present: normal capillary refill Neurological exam: Present: alert, oriented X3, CN II-XII intact, normal gait Expanded Neurological exam: Present: tremor Patient oriented to: Present: person, place, time Speech: Present: fluid speech Cranial nerves: EOM's Intact: Normal, Gag Reflex: Normal, Tongue Deviation: No rmal, Nystagmus: Normal Cerebellar function: Romberg: Normal Eye Response: (4) open spontaneously Motor Response: (6) obeys commands Verbal Response: (5) oriented Becka Total: 15 Psychiatric exam: Present: normal affect, normal mood Skin exam: Present: warm, dry, normal color. Absent: cyanosis, diaphoretic, petechiae, pallor Course Vital Signs 03/23/23 03/23/23 03/23/23 09:48 10:56 12:01 Temperature 98.2 F Pulse Rate 108 H 100 105 H Respiratory 20 18 18 Rate Blood Pressure 182/106 160/112 163/102 O2 Sat by Pulse 98 Oximetry 03/23/23 03/23/23 12:21 12:36 Temperature Pulse Rate 117 H 120 H Respiratory 18 18 Rate Blood Pressure 138/97 155/95 O2 Sat by Pulse 99 Oximetry Medical Decision Making - Medical Decision Making Patient presents with alcohol intoxication and tremors. States that he believes he is going through withdrawal and wants help. CBC is unremarkable. Sodium 129 corrected for blood glucose of 135. Amylase 115, lipase 988. No old labs to compare. Patient denies any abdominal pain. Serum alcohol level 203. Patient was given Ativan and is resting comfortably on the cart eating chips. Denies any headaches. No nausea vomiting or diarrhea. Daughter at bedside. Patient was given hydralazine for his elevated blood pressure which is likely due to his tremors from alcohol withdrawal. 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 States he did take his medication as prescribed last night. Patient is clinically sober, ambulates with a steady gait. Is willing to be discharged home to follow up with [facility]. Case discussed with Dr. Alcantara Was pt. sent in by a medical professional or institution (, WINTER, PARTS BACK COUNTER MAN, urgent care, hospital, or [facility]...) When possible be specific @ -[No] Did you speak to anyone other than the patient for history (EMS, parent, family, police, friend...)? What history was obtained from this source @ -[No] Did you review nursing and triage notes (agree or disagree)? Why? @ -I reviewed and agree with nursing and triage notes] Were old charts reviewed (outside hosp., previous admission, EMS record, old EKG, old radiological studies, urgent care reports/EKG's, [facility] records)? Report findings @ -[No old charts were reviewed] Differential Diagnosis (chest pain, altered mental status, abdominal pain women, abdominal pain men, vaginal bleeding, weakness, fever, dyspnea, syncope, headache, dizziness, GI bleed, back pain, seizure, CVA, palpatations, mental health, musculoskeletal)? @ -Polysubstance abuse, alcohol intoxication, delirium tremens EKG interpreted by me (3pts min.). @ -n/a X-rays interpreted by me (1pt min.). @ -[None done] CT interpreted by me (1pt min.). @ -[None done] U/S interpreted by me (1pt. min.). @ -[None done] What testing was considered but not performed or refused? (CT, X-rays, U/S, labs)? Why? @ -[None] What meds were considered but not given or refused? Why? @ -[None] Did you discuss the management of the patient with other professionals (professionals i.e. , WINTER, PARTS BACK COUNTER MAN, lab, RT, psych nurse, director social welfare, asphalt screed operator, teacher, personal banking officer, medical case worker)? Give summary @ -[No] Was smoking cessation discussed for >3mins.? @ -yes Was critical care preformed (if so, how long)? @ -[No] Were there social determinants of health that impacted care today? How? (Homelessness, low income, unemployed, alcoholism, drug addiction, transportat ion, low edu. Level, literacy, decrease access to med. care, [facility], rehab)? @ -[No] Was there de-escalation of care discussed even if they declined (Discuss DNR or withdrawal of care, Hospice)? DNR status @ -[No] What co-morbidities impacted this encounter? (DM, HTN, Smoking, COPD, CAD, Cancer, CVA, ARF, Chemo, Hep., AIDS, mental health diagnosis, sleep apnea, morbid obesity)? @ -Seizures, alcohol abuse, hypertension Was patient admitted / discharged? Hospital course, mention meds given and route, prescriptions, significant lab abnormalities, going to OR and other pertinent info. @ -Discharged. Patient presents with alcohol intoxication and tremors. States that he believes he is going through withdrawal and wants help. CBC is unremarkable. Sodium 129 corrected for blood glucose of 135. Amylase 115, lipase 988. No old labs to compare. Patient denies any abdominal pain. Serum alcohol level 203. Patient was given Ativan and is resting comfortably on the cart eating chips. Denies any headaches. No nausea vomiting or diarrhea. Daughter at bedside. Patient was given hydralazine for his elevated blood pressure which is likely due to his tremors from alcohol withdrawal. 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 Medications at bedside. States he did take his medication as prescribed last night. Patient is clinically sober, ambulates with a steady gait. Denies any homicidal or suicidal ideations. Is willing to be discharged home to follow up with [facility]. Discharged with daughter Glendy. Case discussed with Dr. Alcantara Undiagnosed new problem with uncertain prognosis? @ -[No] Drug Therapy requiring intensive monitoring for toxicity (Heparin, Nitro, Insulin, Cardizem)? @ -[No] Were any procedures done? @ -[No] Diagnosis/symptom? @ -Alcohol intoxication Acute, or Chronic, or Acute on Chronic? @ -Acute on chronic Uncomplicated (without systemic symptoms) or Complicated (systemic symptoms)? @ -Uncomplicated Side effects of treatment? @ -[No] Exacerbation, Progression, or Severe Exacerbation? @ -[No] Poses a threat to life or bodily function? How? (Chest pain, [place], [place], pneumonia, PE, COPD, DKA, ARF, appy, cholecystitis, CVA, Diverticulitis, Homicidal, Suicidal, threat to staff... and all critical care pts) @ -[No] - Lab Data Result diagrams: 03/23/23 10:53 03/23/23 10:53 Lab Results 03/23/23 03/23/23 Range/Units 10:53 10:53 WBC 9.4 (3.8-10.6) k/uL RBC 4.53 (4.30-5.90) m/uL Hgb 14.6 (13.0-17.5) gm/dL Hct 42.6 (39.0-53.0) % MCV 94.1 (80.0-100.0) fL MCH 32.2 (25.0-35.0) pg MCHC 34.2 (31.0-37.0) g/dL RDW 11.2 L (11.5-15.5) % Plt Count 103 L (150-450) k/uL MPV 8.0 Neutrophils % 92 % Lymphocytes % 3 % Monocytes % 5 % Eosinophils % 0 % Basophils % 0 % Neutrophils # 8.6 H (1.3-7.7) k/uL Lymphocytes # 0.3 L (1.0-4.8) k/uL Monocytes # 0.4 (0-1.0) k/uL Eosinophils # 0.0 (0-0.7) k/uL Basophils # 0.0 (0-0.2) k/uL Sodium 128 L (137-145) mmol/L Potassium 3.9 (3.5-5.1) mmol/L Chloride 91 L (98-107) mmol/L Carbon Dioxide 21 L (22-30) mmol/L Anion Gap 16 mmol/L BUN 8 L (9-20) mg/dL Creatinine 0.62 L (0.66-1.25) mg/dL Est GFR (CKD-EPI)AfAm >90 (>60 ml/min/1.73 sqM) Est GFR (CKD-EPI)NonAf >90 (>60 ml/min/1.73 sqM) Glucose 135 H (74-99) mg/dL Calcium 8.7 (8.4-10.2) mg/dL Magnesium 2.1 (1.6-2.3) mg/dL Total Bilirubin 0.7 (0.2-1.3) mg/dL AST 115 H (17-59) U/L ALT 111 H (4-49) U/L Alkaline Phosphatase 116 (38-126) U/L Total Protein 7.3 (6.3-8.2) g/dL Albumin 4.6 (3.5-5.0) g/dL Amylase 115 H (30-110) U/L Lipase 988 H (23-300) U/L Serum Alcohol 203 H* mg/dL Disposition Clinical Impression: Alcoholic intoxication, Hypertension Disposition: HOME SELF-CARE Condition: Good Instructions (If sedation given, give patient instructions): Alcohol Intoxication (ED) Additional Instructions: Please follow-up with [facility] for [facility] abuse. Address: [address] [place] [address] Follow-up with your primary care doctor regarding your hypertension. Continue taking your amlodipine as prescribed. Is patient prescribed a controlled substance at d/c from ED?: No Referrals: Wan Reynolds MD [Primary Care Provider] - 1-2 days
[2023-03-23 10:56] VITALS: RESP 18
[2023-03-23 11:06] LABS: Basophils % (A) 0 %; Eosinophils % (A) 0 %; HCT 42.6 % (39.0-53.0); HGB 14.6 gm/dL (13.0-17.5); Lymphocytes # (A) 0.3 k/uL (1.0-4.8); Lymphocytes % (A) 3 %; MCH 32.2 pg (25.0-35.0); MCHC 34.2 g/dL (31.0-37.0); MCV 94.1 fL (80.0-100.0); Monocytes # (A) 0.4 k/uL (0-1.0); Monocytes % (A) 5 %; Neutrophils # (A) 8.6 k/uL (1.3-7.7); Neutrophils % (A) 92 %; Platelet Count 103 k/uL (150-450); RBC 4.53 m/uL (4.30-5.90); RDW 11.2 % (11.5-15.5); WBC 9.4 k/uL (3.8-10.6)
[2023-03-23 11:18] LABS: ALT 111 U/L (4-49); AST 115 U/L (17-59); African American GFR (CKD) >90 (>60 ml/min/1.73 sqM); Albumin 4.6 g/dL (3.5-5.0); Alkaline Phosphatase 116 U/L (38-126); Amylase 115 U/L (30-110); Anion Gap 16 mmol/L; Blood Urea Nitrogen 8 mg/dL (9-20); Calcium 8.7 mg/dL (8.4-10.2); Carbon Dioxide 21 mmol/L (22-30); Chloride 91 mmol/L (98-107); Glucose 135 mg/dL (74-99); Lipase 988 U/L (23-300); Magnesium 2.1 mg/dL (1.6-2.3); Non-African American GFR(CKD) >90 (>60 ml/min/1.73 sqM); Potassium 3.9 mmol/L (3.5-5.1); Sodium 128 mmol/L (137-145); Total Bilirubin 0.7 mg/dL (0.2-1.3); Total Protein 7.3 g/dL (6.3-8.2)
[2023-03-23 11:28] LABS: Alcohol 203 mg/dL
[2023-03-23] MEDS ORDERED: hydrALAZINE HCL 20 MG/ML 1 ML VIAL IVP STA (11:35)
[2023-03-23] MEDS ORDERED: NICOTINE 14MG/24HR PATCH TRANSDERM STA (11:56)
[2023-03-23 12:51] VITALS: BP 155/95; PULSE 120
== END 2023-03-23 12:50 | disposition home or self-care (01) ==
LOC: EC 09:44
DX: F10.129 Alcohol abuse with intoxication, unspecified (principal); I10 Essential (primary) hypertension; F17.200 Nicotine dependence, unspecified, uncomplicated; Z79.899 Other long term (current) drug therapy; Y90.7 Blood alcohol level of 200-239 mg/100 ml
CPT/HCPCS: 36415; 80053; 82150; 83690; 83735; 85025; 80320; 99285; 96374; 96375 ×2; 96361; S4990; J2060; J0360; J1885

== ENCOUNTER 2024-11-14 04:20 | Inpatient (IN) | payer BC ==
[2024-11-14 04:34] LABS: Glucose,Whole Blood 116 mg/dL (70-110)
[2024-11-14] MEDS ORDERED: LORazepam 0.5 MG TAB PO PRN (04:38)
[2024-11-14] MEDS ORDERED: LORazepam 2 MG/ML INJ IV PRN ×3 (04:38)
[2024-11-14] MEDS ORDERED: LORazepam 1 MG TAB PO PRN ×4 (04:38)
--- NOTE | 2024-11-14 04:44 | ED ---
Seizure HPI - General Chief Complaint: Seizure Stated Complaint: Seizure Time Seen by Provider: 11/14/24 04:35 Source: patient, EMS, RN notes reviewed, old records reviewed Mode of arrival: EMS Limitations: no limitations - History of Present Illness Initial Comments: This is a 54-year-old male to the ER for evaluation of seizure patient seizure prior to arrival and presents with alcohol withdrawal seizures known history of alcoholism and has not drank in a few days MD Complaint: seizure, loss of consciousness, shaking -: hour(s) Description of Episode: loss of consciousness, tonic-clonic movement, post-event confusion -: second(s) Witnessed: yes - by bystander, yes - by EMS Seizure History: history of withdrawal seizures Possible Precipitating Event: alcohol withdrawal Associated Symptoms: denies other symptoms - Related Data Home Medications Medication Instructions Recorded Confirmed Rizatriptan Odt [Maxalt AIRWORTHINESS INSPECTOR] 10 mg PO DAILY PRN 06/22/22 03/23/23 amLODIPine [Norvasc] 10 mg PO DAILY 06/22/22 03/23/23 Cholecalciferol (Vitamin D3) 75 mcg PO DAILY 03/23/23 03/23/23 [Vitamin D3 (3000 Iu)] Magnesium Oxide [Magnesium] 500 mg PO HS 03/23/23 03/23/23 Previous Rx's Medication Instructions Recorded levETIRAcetam [Keppra] 500 mg PO Q12HR 30 Days #60 tab 07/19/22 Allergies Allergy/AdvReac Type Severity Reaction Status Date / Time No Known Allergies Allergy Verified 11/14/24 04:27 Review of Systems ROS Statement: Those systems with pertinent positive or pertinent negative responses have been documented in the HPI. ROS Other: All systems not noted in ROS Statement are negative. Past Medical History Past Medical History: Hypertension Additional Past Medical History / Comment(s): Migraine MATHIS, Essential tremor History of Any Multi-Drug Resistant Organisms: None Reported Past Surgical History: Unable to Obtain Additional Past Surgical History / Comment(s): vasecotmy Past Anesthesia/Blood Transfusion Reactions: No Reported Reaction Past Psychological History: No Psychological Hx Reported Smoking Status: Current every day smoker Past Alcohol Use History: Abuse, Daily Past Drug Use History: None Reported - Past Family History Father Family Medical History: Dementia Additional Family Medical History / Comment(s): Father is 82 yrs old. Mother Family Medical History: Hypertension Additional Family Medical History / Comment(s): Mother is 79yrs old. General Exam Limitations: altered mental status, physical limitation General appearance: alert, anxious, in distress Head exam: Present: atraumatic, normocephalic, normal inspection Eye exam: Present: normal appearance, PERRL, EOMI. Absent: scleral icterus, conjunctival injection, periorbital swelling ENT exam: Present: normal exam, mucous membranes moist Neck exam: Present: normal inspection. Absent: tenderness, meningismus, lymphadenopathy Respiratory exam: Present: normal lung sounds bilaterally. Absent: respiratory distress, wheezes, rales, rhonchi, stridor Cardiovascular Exam: Present: normal rhythm, tachycardia, normal heart sounds. Absent: systolic murmur, diastolic murmur, rubs, gallop, clicks GI/Abdominal exam: Present: soft, normal bowel sounds. Absent: distended, tenderness, guarding, rebound, rigid Extremities exam: Present: normal inspection, full ROM, normal capillary refill. Absent: tenderness, pedal edema, joint swelling, calf tenderness Back exam: Present: normal inspection Neurological exam: Present: alert, oriented X3, CN II-XII intact Psychiatric exam: Present: normal affect, normal mood Skin exam: Present: warm, dry, intact, normal color. Absent: rash Course Vital Signs 11/14/24 11/14/24 04:21 05:10 Temperature 98.4 F Pulse Rate 106 H 134 H Respiratory 18 24 Rate Blood Pressure 164/111 180/110 O2 Sat by Pulse 99 96 Oximetry - Reevaluation(s) Reevaluation #1: 11/14/24 05:45 Records reviewed Reevaluation #2: 11/14/24 05:45 Patient has recurrent seizure here in the ER second seizure but patient did return to alertness between seizures 1 seizure prehospital 1 seizure in the hospital Reevaluation #3: 11/14/24 05:45 Patient informed of results and questions answered Reevaluation #4: Was pt. sent in by a medical professional or institution (, PA, COMMUNITY REPRESENTATIVE, urgent care, hospital, or alf...) When possible be specific @ -no Did you speak to anyone other than the patient for history (EMS, parent, family, police, friend...)? What history was obtained from this source @ -no Did you review nursing and triage notes (agree or disagree)? Why? @ -agree Are old charts reviewed (outside hosp., previous admission, EMS record, old EKG, old radiological studies, urgent care reports/EKG's, alf records)? Report findings @ -yes Differential Diagnosis (chest pain, altered mental status, abdominal pain women, abdominal pain men, vaginal bleeding, weakness, fever, dyspnea, syncope, headache, dizziness, GI bleed, back pain, seizure, CVA, palpatations, mental health, musculoskeletal)? @ -prior EKG interpreted by me (3pts min.). @ -yes X-rays interpreted by me (1pt min.). @ -yes negative for acute disease CT interpreted by me (1pt min.). @ -no U/S interpreted by me (1pt. min.). @ -no What testing was considered but not performed or refused? (CT, X-rays, U/S, labs)? Why? @ -none What meds were considered but not given or refused? Why? @ -none Did you discuss the management of the patient with other professionals (professionals i.e. , PA, COMMUNITY REPRESENTATIVE, lab, RT, psych nurse, manager social, die hardener, teacher, major gifts officer, patient case coordinator)? Give summary @ -no Was smoking cessation discussed for >3mins.? @ -no Was critical care preformed (if so, how long)? @ -no Were there social determinants of health that impacted care today? How? (Homelessness, low income, unemployed, alcoholism, drug addiction, transportation, low edu. Level, literacy, decrease access to med. care, nursing home, rehab)? @ -none Was there de-escalation of care discussed even if they declined (Discuss DNR or withdrawal of care, Hospice)? DNR status @ -no What co-morbidities impacted this encounter? (DM, HTN, Smoking, COPD, CAD, Cancer, CVA, ARF, Chemo, Hep., AIDS, mental health diagnosis, sleep apnea, morbid obesity)? @ -none Was patient admitted / discharged? Hospital course, mention meds given and route, prescriptions, significant lab abnormalities, going to OR and other pertinent info. @ - Undiagnosed new problem with uncertain prognosis? @ -no Drug Therapy requiring intensive monitoring for toxicity (Heparin, Nitro, Insulin, Cardizem)? @ -no Were any procedures done? @ -no Diagnosis/symptom? @ - Acute, or Chronic, or Acute on Chronic? @ -Acute Uncomplicated (without systemic symptoms) or Complicated (systemic symptoms)? @ -Complicated Side effects of treatment? @ -no Exacerbation, Progression, or Severe Exacerbation? @ -exacerbation Poses a threat to life or bodily function? How? (Chest pain, [place], [place], pneumonia, PE, COPD, DKA, ARF, appy, cholecystitis, CVA, Diverticulitis, Homicidal, Suicidal, threat to staff... and all critical care pts) @ -yes Reevaluation #5: Differential Seizure: Recurrent seizure disorder, febrile seizure, alcohol withdrawal, stimulants, meningitis, encephalitis, intercranial hemorrhage, intracranial tumor, stroke, eclampsia, thyrotoxicosis, hypocalcemia, hyponatremia, hypernatremia, hypomagnesemia, psychogenic, this is not meant to be an all-inclusive list. - Consultations Consultation #1: Spoke with sound who agrees to admit this patient Medical Decision Making - Medical Decision Making 54 male to ER for evaluation patient has history of alcoholism and per family has not drank in a few days has alcohol withdrawal seizure prior to arrival has alcohol withdrawal seizure here in the ER and patient will be admitted for impending DTs alcohol withdrawal seizure - Lab Data Result diagrams: 11/14/24 04:38 Lab Results 11/14/24 11/14/24 Range/Units 04:32 04:38 WBC 10.5 (3.8-10.6) k/uL RBC 3.85 L (4.30-5.90) m/uL Hgb 12.7 L (13.0-17.5) gm/dL Hct 36.2 L (39.0-53.0) % MCV 94.1 (80.0-100.0) fL MCH 32.9 (25.0-35.0) pg MCHC 35.0 (31.0-37.0) g/dL RDW 12.0 (11.5-15.5) % Plt Count 114 L (150-450) k/uL MPV 11.2 Neutrophils % 91 % Lymphocytes % 3 % Monocytes % 5 % Eosinophils % 0 % Basophils % 0 % Neutrophils # 9.5 H (1.3-7.7) k/uL Lymphocytes # 0.3 L (1.0-4.8) k/uL Monocytes # 0.5 (0-1.0) k/uL Eosinophils # 0.0 (0-0.7) k/uL Basophils # 0.0 (0-0.2) k/uL POC Glucose (mg/dL) 116 H (70-110) mg/dL POC Glu Electroencephalogram Technologist ID Carlos Reese - EKG Data -: EKG Interpreted by Me (EKG is sinus tachycardia 136 VT 126 QRS 101 QTc 396) Critical Care Time Critical Care Time: Yes Total Critical Care Time: 31 Disposition Clinical Impression: Seizure, Daily consumption of alcohol, Generalized seizure, Alcohol withdrawal seizure Disposition: ADMITTED IP TO THIS HOSP Condition: Serious Instructions (If sedation given, give patient instructions): Seizure/Epilepsy Discharge Instructions & Follow-Up Is patient prescribed a controlled substance at d/c from ED?: No Referrals: Wan Reynolds MD [Primary Care Provider] - 1-2 days Time of Disposition: 05:45
[2024-11-14] MEDS: levETIRAcetam IV 500 MG/5 ML VIAL IVP STA (04:49)
[2024-11-14] MEDS: LORazepam 2 MG/ML INJ IV STA (04:50)
[2024-11-14 05:22] LABS: Basophils % (A) 0 %; Eosinophils % (A) 0 %; HCT 36.2 % (39.0-53.0); HGB 12.7 gm/dL (13.0-17.5); Lymphocytes # (A) 0.3 k/uL (1.0-4.8); Lymphocytes % (A) 3 %; MCH 32.9 pg (25.0-35.0); MCV 94.1 fL (80.0-100.0); Mean Platelet Volume 11.2; Monocytes # (A) 0.5 k/uL (0-1.0); Monocytes % (A) 5 %; Neutrophils # (A) 9.5 k/uL (1.3-7.7); Neutrophils % (A) 91 %; Platelet Count 114 k/uL (150-450); RBC 3.85 m/uL (4.30-5.90); WBC 10.5 k/uL (3.8-10.6)
[2024-11-14 06:23] LABS: ALT 133 U/L (4-49); AST 104 U/L (17-59); Acetaminophen <10.0 ug/mL; African American GFR (CKD) >90 (>60 ml/min/1.73 sqM); Albumin 3.2 g/dL (3.5-5.0); Alcohol <10 mg/dL; Alkaline Phosphatase 226 U/L (38-126); Anion Gap 7 mmol/L; Blood Urea Nitrogen 29 mg/dL (9-20); Calcium 8.6 mg/dL (8.4-10.2); Carbon Dioxide 23 mmol/L (22-30); Chloride 98 mmol/L (98-107); Glucose 126 mg/dL (74-99); Magnesium 2.3 mg/dL (1.6-2.3); Non-African American GFR(CKD) >90 (>60 ml/min/1.73 sqM); Potassium 3.3 mmol/L (3.5-5.1); Salicylate <1.0 mg/dL; Sodium 128 mmol/L (137-145); Total Bilirubin 0.6 mg/dL (0.2-1.3); Total Protein 5.7 g/dL (6.3-8.2)
[2024-11-14] MEDS ORDERED: MORPHINE SULFATE 4 MG/ML SYRINGE IV PRN (06:53)
[2024-11-14] MEDS ORDERED: ONDANSETRON 4 MG/2 ML VIAL IVP PRN (06:53)
[2024-11-14] MEDS ORDERED: NALOXONE 0.4 MG/ML 1 ML VIAL IV PRN (06:53)
[2024-11-14] MEDS: MULTIVITAMINS, THERA 1 EACH TAB PO SCH (07:42)
[2024-11-14] MEDS ORDERED: Potassium Replacement Protocol 1 EACH MISC MISCELLANE PRN (07:57)
[2024-11-14] MEDS: ENOXAPARIN 40 MG/0.4 ML SYRINGE SQ SCH (08:12)
[2024-11-14] MEDS: levETIRAcetam IV 500 MG/5 ML VIAL IVP SCH (08:12)
[2024-11-14] MEDS: POTASSIUM CHLORIDE ER 20 MEQ TAB.ER PO STA (08:16)
[2024-11-14] MEDS: FOLIC ACID 1 MG TAB PO SCH (08:16)
[2024-11-14] MEDS: amLODIPine 10 MG TAB PO SCH (08:16)
[2024-11-14 08:55] LABS: Prothrombin Time 11.1 sec (10.0-12.5)
[2024-11-14] MEDS: SODIUM CHLORIDE 0.9% 1,000 ML IV SCH (09:35)
[2024-11-14 13:15] LABS: African American GFR (CKD) >90 (>60 ml/min/1.73 sqM); Anion Gap 11 mmol/L; Blood Urea Nitrogen 25 mg/dL (9-20); Calcium 8.6 mg/dL (8.4-10.2); Carbon Dioxide 20 mmol/L (22-30); Chloride 100 mmol/L (98-107); Glucose 89 mg/dL (74-99); Non-African American GFR(CKD) >90 (>60 ml/min/1.73 sqM); Potassium 3.5 mmol/L (3.5-5.1); Sodium 131 mmol/L (137-145)
--- NOTE | 2024-11-14 13:23 | P.HPIM ---
History of Present Illness H&P Date: 11/14/24 History of present illness; Patient is a 54-year-old with alcohol use disorder, epilepsy, and hypertension who presents with breakthrough seizure. Patient states he had 2 tonic-clonic seizures last evening. Initial seizure was 1-1/2 minutes and second seizure occurred about 1 hour later. He endorses tongue biting, postictal confusion, and no urinary incontinence however he did have initial seizure after using bathroom. Both episodes were witnessed by his son who corroborated story, and also states he was confused but increasingly alert after first seizure. He does have history of alcohol withdrawal seizures last being 1 to 2 years ago. Patient also has over 25-year history of drinking. He states that his last drink was Wednesday night and he typically has anywhere from 2-7 beers daily. No history of delirium tremens. Preceding these events patient states he felt ill for 1 week with some shortness of breath and sputum production, nausea and vomiting which has mostly resolved at this time. He did not seek medical attention for this use Tylenol which mildly improved his symptoms. Today patient reports absence of fever, chills, chest pain, palpitations, diaphoresis, dyspnea, cough, nausea, vomiting, constipation, diarrhea, abdominal pain, dizziness, headache, and dysuria. EKG done in the ER independently interpreted showed sinus tachycardia heart rate of 136, nonspecific ST changes. Spoke with the ER physician, patient admission was accepted by internal medicine service for treatment. REVIEW OF SYSTEMS: Pertinent positives and negatives noted in HPI. PHYSICAL EXAMINATION: Vitals reviewed GENERAL: Lethargic. No acute distress. Well developed, well nourished. HEENT: Pupils are round and equally reacting to light. EOMI. No scleral icterus. Normocephalic, atraumatic. CARDIOVASCULAR: S1 and S2 present. No murmurs, rubs, or gallops. PULMONARY: Chest is clear to auscultation, no wheezing, rhonchi, or crackles. ABDOMEN: Soft, nontender, nondistended, normoactive bowel sounds. No palpable organomegaly. MUSCULOSKELETAL: No apparent joint swelling and deformities. EXTREMITIES: No apparent cyanosis, clubbing, or pedal edema. NEUROLOGICAL: Gross neurological examination did not reveal any focal deficits. SKIN: No apparent rashes. Assessment and plan Patient is a 54-year-old with alcohol use disorder, epilepsy, and hypertension who presents with breakthrough seizure. #Chronic Epilepsy with breakthrough seizure likely due to alcohol withdrawal vs medication non-adherence Initial bicarb 17, elevated. Patient afebrile, WBC is WNL, PT INR are WNL Toxicology negative for salicylates, acetaminophen, alcohol Continue cardiac monitoring Keppra levels pending - EEG pending - seizure precautions - patient was loaded with 1 gm of keppra Continued on Keppra 500 every 12 hours p.o. As per neurology, likely alcohol withdrawal seizure #Alcohol dependence with withdrawal -Alcohol <10, last drink was Wednesday night [facility] protocol Give daily thiamine and folic acid monitor daily electrolytes -cardiac monitoring -social media campaign manager consult #Hyponatremia, hypovolemic Initial sodium at 128 - Osmolality serum and urine, urine Na pending - TSH pending Begin IV NS at 130 mL/h - monitor BMP #Hypokalemia -Initial potassium 3.3, magnesium 2.3 is WNL Given 40 mEq potassium chloride Monitor CMP #Prerenal azotemia Initial BUN 29 Begin IV NS at 130 mL/h #Transaminitis #Elevated ALP -elevated on previous admissions - no abdominal symptoms at this time - continue to monitor Chronic Medical Conditions # Essential hypertension - Resume home amlodipine F: IV NS at 130 mL/h E: Replete as needed N: Regular diet DVT ppx: Subq Lovenox 40 meq daily Code status: Full code Anticipated discharge place: Home Anticipated discharge time: 1 to 2 days Dictation was produced using [employer] dictation software. Please excuse any grammatical, word or spelling errors. The patient is admitted with an anticipated [greater] than 2 midnight stay as inpatient status for evaluation of alcohol withdrawal seizures. A total of 65 minutes was spent on the care of this complex patient more than 50% of the time was spent in counseling and care coordination. I have seen and evaluated the patient today. Discussed with the resident and agree with the residents finding and plan as documented in the resident's note. Changes highlighted in blue font. Past Medical History Past Medical History: Hypertension Additional Past Medical History / Comment(s): Migraine MATHIS, Essential tremor History of Any Multi-Drug Resistant Organisms: None Reported Past Surgical History: Unable to Obtain Additional Past Surgical History / Comment(s): vasecotmy Past Anesthesia/Blood Transfusion Reactions: No Reported Reaction Past Psychological History: No Psychological Hx Reported Smoking Status: Current every day smoker Past Alcohol Use History: Abuse, Daily Past Drug Use History: None Reported - Past Family History Father Family Medical History: Dementia Additional Family Medical History / Comment(s): Father is 82 yrs old. Mother Family Medical History: Hypertension Additional Family Medical History / Comment(s): Mother is 79yrs old. Medications and Allergies Home Medications Medication Instructions Recorded Confirmed Type amLODIPine [Norvasc] 10 mg PO DAILY 06/22/22 11/14/24 History levETIRAcetam [Keppra] 500 mg PO Q12HR 30 Days #60 tab 07/19/22 11/14/24 Rx Allergies Allergy/AdvReac Type Severity Reaction Status Date / Time No Known Allergies Allergy Verified 11/14/24 07:21 Physical Exam Vitals: Vital Signs Temp Pulse Resp BP Pulse Ox 11/14/24 07:39 105 H 20 160/103 97 11/14/24 06:00 104 H 18 147/102 97 11/14/24 05:30 130 H 18 123/89 98 11/14/24 05:10 134 H 24 180/110 96 11/14/24 04:21 98.4 F 106 H 18 164/111 99 Intake and Output 11/13/24 11/14/24 11/14/24 22:59 06:59 14:59 Other: Weight 68.039 kg Results CBC & Chem 7: 11/14/24 04:38 11/14/24 12:01 Labs: Abnormal Lab Results - Last 24 Hours (Table) 11/14/24 11/14/24 11/14/24 Range/Units 04:32 04:38 05:58 RBC 3.85 L (4.30-5.90) m/uL Hgb 12.7 L (13.0-17.5) gm/dL Hct 36.2 L (39.0-53.0) % Plt Count 114 L (150-450) k/uL Neutrophils # 9.5 H (1.3-7.7) k/uL Lymphocytes # 0.3 L (1.0-4.8) k/uL Sodium 128 L (137-145) mmol/L Potassium 3.3 L (3.5-5.1) mmol/L BUN 29 H (9-20) mg/dL Glucose 126 H (74-99) mg/dL POC Glucose (mg/dL) 116 H (70-110) mg/dL AST 104 H (17-59) U/L ALT 133 H (4-49) U/L Alkaline Phosphatase 226 H (38-126) U/L Total Protein 5.7 L (6.3-8.2) g/dL Albumin 3.2 L (3.5-5.0) g/dL
--- NOTE | 2024-11-14 16:54 | P.CNNES ---
History of Present Illness Consult date: 11/14/24 Requesting physician: Holland Mendez Reason for Consult: breakthrough vs alcohol withdrawal sz History of Present Illness: This is a 54-year-old gentleman with history of seizure and likely due to alcohol withdrawal as well as provoked due to hyponatremia, significant alcohol use who presents the emergency department because of suspected breakthrough seizure. According to the patient he continues to drink alcohol significantly but it seems in the last 2 weeks he has been cutting down then he drank again in the last drink was about 3 days ago and then he stated that he was at home in the bathroom and his son suspected that he had seizure-like activity. Also he stated that recently he has been having recurrent nausea vomiting. It seems that he notified the primary team that the patient had to tonic-clonic seizure- like activity last evening and the initial seizure lasted for a minute and a half and the second seizure lasted for about 1 hour later. Patient did bit his tongue he was postictal and had no urinary or bowel incontinence seems that his episodes were witnessed by his son. Patient states in the last 1 year he has been attempting to cut down but he will relapse. He is on Keppra 500 mg twice daily and he stated that sometimes he misses the medication but in the last 2 weeks he has been compliant taking the medication. Patient is not follow-up with a neurologist as an outpatient for his seizure-like activity. Some of the workup during this hospital visit consisted of: AST 204, ALT is 133,Calcium is 8.6, serum glucose is 126, sodium is 128 and repeat is 131 Alcohol level is less than 10 Review of Systems As per HPI. Past Medical History Past Medical History: Hypertension Additional Past Medical History / Comment(s): Migraine MATHIS, Essential tremor History of Any Multi-Drug Resistant Organisms: None Reported Past Surgical History: Unable to Obtain Additional Past Surgical History / Comment(s): vasecotmy Past Anesthesia/Blood Transfusion Reactions: No Reported Reaction Past Psychological History: No Psychological Hx Reported Smoking Status: Current every day smoker Past Alcohol Use History: Abuse, Daily Past Drug Use History: None Reported - Past Family History Father Family Medical History: Dementia Additional Family Medical History / Comment(s): Father is 82 yrs old. Mother Family Medical History: Hypertension Additional Family Medical History / Comment(s): Mother is 79yrs old. Medications and Allergies Home Medications Medication Instructions Recorded Confirmed Type amLODIPine [Norvasc] 10 mg PO DAILY 06/22/22 11/14/24 History levETIRAcetam [Keppra] 500 mg PO Q12HR 30 Days #60 tab 07/19/22 11/14/24 Rx Allergies Allergy/AdvReac Type Severity Reaction Status Date / Time No Known Allergies Allergy Verified 11/14/24 07:21 Physical Examination - Vital Signs Vital Signs: Vital Signs Temp Pulse Resp BP Pulse Ox 11/14/24 12:00 98.9 F 90 20 140/69 98 11/14/24 09:38 98 20 140/98 98 11/14/24 07:39 105 H 20 160/103 97 11/14/24 06:00 104 H 18 147/102 97 11/14/24 05:30 130 H 18 123/89 98 11/14/24 05:10 134 H 24 180/110 96 11/14/24 04:21 98.4 F 106 H 18 164/111 99 Intake and Output 11/14/24 11/14/24 11/14/24 06:59 14:59 22:59 Intake Total 650 Output Total 800 Balance -150 Intake: Oral 650 Output: Urine 800 Other: # Bowel Movements 0 Weight 68.039 kg General: Lying in bed and is not in acute distress. Neuro: Minimally limited since the patient is given Ativan but the patient is oriented to self place he correctly stated the current month but stated the year is 2023. He is following simple commands No aphasia Pupils are round equal reactive to light. No facial weakness. No dysarthria Tongue is midline moves [id number] without any difficulty. Does have a tongue bite. Motor the strength is left in all extremities above gravity and equal symmetrical Sensation is normal to touch Plantars are mute Results - Laboratory Findings CBC and BMP: 11/14/24 04:38 11/14/24 12:01 Abnormal Lab Findings: Abnormal Labs 11/14/24 11/14/24 11/14/24 04:32 04:38 05:58 RBC 3.85 L Hgb 12.7 L Hct 36.2 L Plt Count 114 L Neutrophils # 9.5 H Lymphocytes # 0.3 L Sodium 128 L Potassium 3.3 L Carbon Dioxide BUN 29 H Glucose 126 H POC Glucose (mg/dL) 116 H AST 104 H ALT 133 H Alkaline Phosphatase 226 H Total Protein 5.7 L Albumin 3.2 L 11/14/24 12:01 RBC Hgb Hct Plt Count Neutrophils # Lymphocytes # Sodium 131 L Potassium Carbon Dioxide 20 L BUN 25 H Glucose POC Glucose (mg/dL) AST ALT Alkaline Phosphatase Total Protein Albumin Assessment and Plan Assessment: This is a 54-year-old gentleman who present emergency department because of br eakthrough seizure. It seems the patient has been cutting down on alcohol recently and has been having nausea vomiting episode and it seems that he had to witnessed seizure-like activity by his son and he bit his tongue. Breakthrough seizure seems provoked due to alcohol withdrawal. Alcohol level is less than 10 as well as provoked due to his recurrent nausea and vomiting recently. On examination the patient is somewhat tremulous likely going through withdrawal Transaminitis due to alcohol use History of seizure and in the past was due to alcohol withdrawal as well as hyponatremia Chronic hyponatremia Medication noncompliance Chronic ongoing severe alcohol use Plan: In the ED the patient was given Keppra 1 g as well as his Keppra was increased by the ED physician from 500 twice a day to 1000 mg twice a day but from a neurologic perspective we can lower the dose to 500 mg twice a day Patient had EEG in the past which was normal from a neurology perspective no need for repeat EEG since 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 I am in agreement with the thiamine 100 mg daily Per the [place] DMV because of the seizure, to avoid driving for 6 months until seizure-free, avoid heights, avoid tolerating and assisted in using heavy missionary Seizure precaution and pads Patient is on CIWA and I will defer the management to the primary team Will defer the rest of the medical management to primary and other specialist Patient was counseled on medication compliance and alcohol cessation Upon discharge recommend the patient to follow-up with a neurologist as an outpatient within 2 to 3 weeks The plan discussed with the patient and the primary team Time with Patient: Greater than 30
[2024-11-14] MEDS: levETIRAcetam 500 MG TAB PO SCH (20:27)
[2024-11-15] MEDS: THIAMINE 100 MG TAB PO SCH (08:47)
[2024-11-15 09:09] VITALS: BP 155/83; PULSE 90; RESP 18; TEMP 98.2
[2024-11-15 09:48] LABS: Basophils # (A) 0.02 X 10*3/uL (0.00-0.10); Basophils % (A) 0.3 %; Eosinophils # (A) 0.11 X 10*3/uL (0.04-0.35); Eosinophils % (A) 1.6 %; HCT 29.4 % (39.6-50.0); HGB 10.2 g/dL (13.0-17.0); Lymphocytes # (A) 1.23 X 10*3/uL (0.90-5.00); Lymphocytes % (A) 17.4 %; MCH 31.5 pg (27.0-32.0); MCHC 34.7 g/dL (32.0-37.0); MCV 90.7 FL (80.0-97.0); Mean Platelet Volume 10.5 FL (9.5-12.2); Monocytes # (A) 0.91 X 10*3/uL (0.20-1.00); Monocytes % (A) 12.9 %; NRBC Per 100 WBC 0 X 10*3/uL (0.00-0.01); Neutrophils # (A) 4.78 X 10*3/uL (1.80-7.70); Neutrophils % (A) 67.4 %; Platelet Count 103 X 10*3/uL (140-440); RBC 3.24 X 10*6/uL (4.40-5.60); RDW 11.9 % (11.5-14.5); WBC 7.08 X 10*3/uL (4.50-10.00)
--- NOTE | 2024-11-15 09:48 | P.DS ---
Providers Date of admission: 11/14/24 06:53 Expected date of discharge: 11/15/24 Attending physician: Shiv Jimenez Consults: 11/14/24 09:41 Consult Physician Routine Consulting Provider: Gerald Ford Consult Reason/Comments: Breakthrough vs alcohol w/d seizure Do you want consulting provider notified?: Yes Primary care physician: Wan Reynolds Hospital Course: Discharge diagnoses; # Alcohol withdrawal seizure #Alcohol dependence with withdrawal #History of epilepsy #Hyponatremia, hypovolemic #Hypokalemia #Prerenal azotemia #Transaminitis #Elevated ALP # Essential hypertension Hospital course; History of present illness; Patient is a 54-year-old with alcohol use disorder, epilepsy, and hypertension who presents with breakthrough seizure. Patient states he had 2 tonic-clonic seizures last evening. Initial seizure was 1-1/2 minutes and second seizure occurred about 1 hour later. He endorses tongue biting, postictal confusion, and no urinary incontinence however he did have initial seizure after using bathroom. Both episodes were witnessed by his son who corroborated story, and also states he was confused but increasingly alert after first seizure. He does have history of alcohol withdrawal seizures last being 1 to 2 years ago. Patient also has over 25-year history of drinking. He states that his last drink was Wednesday night and he typically has anywhere from 2-7 beers daily. No history of delirium tremens. Preceding these events patient states he felt ill for 1 week with some shortness of breath and sputum production, nausea and vomiting which has mostly resolved at this time. He did not seek medical attention for this use Tylenol which mildly improved his symptoms. Today patient reports absence of fever, chills, chest pain, palpitations, diaphoresis, dyspnea, cough, nausea, vomiting, constipation, diarrhea, abdominal pain, dizziness, headache, and dysuria. EKG done in the ER independently interpreted showed sinus tachycardia heart rate of 136, nonspecific ST changes. While in hospital patient was evaluated for chronic epilepsy with breakthrough seizure likely due to alcohol withdrawal. He was evaluated by neurology. Patient to be discharged home in stable condition. He may continue Keppra at 500 mg 2 times daily. He will be given vitamins on discharge. He is to follow-up with his PCP and neurologist. PHYSICAL EXAMINATION: Vitals reviewed GENERAL: No acute distress. Well developed, well nourished. HEENT: Pupils are round and equally reacting to light. EOMI. No scleral icterus. Normocephalic, atraumatic. CARDIOVASCULAR: S1 and S2 present. No murmurs, rubs, or gallops. PULMONARY: Chest is clear to auscultation, no wheezing, rhonchi, or crackles. ABDOMEN: Soft, nontender, nondistended, normoactive bowel sounds. No palpable organomegaly. MUSCULOSKELETAL: No apparent joint swelling and deformities. EXTREMITIES: No apparent cyanosis, clubbing, or pedal edema. NEUROLOGICAL: Gross neurological examination did not reveal any focal deficits. SKIN: No apparent rashes. Dictation was produced using [employer] dictation software. please excuse any grammatical, word or spelling errors. A total of 38 minutes of time were spent preparing this complex discharge summary. Patient was discharged on 11/15/2024 at 942. I have seen and evaluated the patient today. Discussed with the resident and agree with the residents finding and plan as documented in the resident's note. Changes highlighted in blue font. Patient Condition at Discharge: Stable Plan - Discharge Summary Discharge Rx Participant: No New Discharge Prescriptions: New Thiamine [Vitamin B-1] 100 mg PO DAILY #30 tab Folic Acid 1 mg PO DAILY #30 tab Multivitamins, Thera [Multivitamin (formulary)] 1 each PO DAILY #30 tab Continue amLODIPine [Norvasc] 10 mg PO DAILY levETIRAcetam [Keppra] 500 mg PO Q12HR 30 Days #60 tab Discharge Medication List amLODIPine [Norvasc] 10 mg PO DAILY 06/22/22 [History] levETIRAcetam [Keppra] 500 mg PO Q12HR 30 Days #60 tab 07/19/22 [Rx] Folic Acid 1 mg PO DAILY #30 tab 11/15/24 [Rx] Multivitamins, Thera [Multivitamin (formulary)] 1 each PO DAILY #30 tab 11/15/24 [Rx] Thiamine [Vitamin B-1] 100 mg PO DAILY #30 tab 11/15/24 [Rx] Follow up Appointment(s)/Referral(s): Wan Reynolds MD [Primary Care Provider] - 1-2 days (office not answering Please call to schedule appointment ) Patient Instructions/Handouts: Seizure/Epilepsy Discharge Instructions & Follow-Up Activity/Diet/Wound Care/Special Instructions: Patient to follow up with PCP and neurology. Discharge/Stand Alone Forms: AA [facility] Donahue, Outpatient Counseling, In Substance Abuse Facilities Discharge Disposition: HOME SELF-CARE
[2024-11-15 10:01] LABS: ALT 110 U/L (10-49); AST 97 U/L (14-35); Albumin/Globulin Ratio 1.58 Ratio (1.60-3.17); Alkaline Phosphatase 173 U/L (41-126); BUN/Creat Ratio 30.33 Ratio (12.00-20.00); Blood Urea Nitrogen 18.2 mg/dL (9.0-27.0); Calcium 7.7 mg/dL (8.7-10.3); Chloride 102 mmol/L (96-109); Globulin 1.9 g/dL (1.6-3.3); Glucose 97 mg/dL (70-110); Phosphorus 2.8 mg/dL (2.4-5.1); Potassium 3.6 mmol/L (3.5-5.5); Sodium 134 mmol/L (135-145); Total Bilirubin 0.5 mg/dL (0.3-1.2); Total Protein 4.9 g/dL (6.2-8.2)
== END 2024-11-15 13:35 | disposition home or self-care (01) | DRG 897 ==
LOC: EC 04:20 → 4SSUR 06:53
PROVIDERS: ADMIT Student in an Organized Health Care Education/Training Program; ATTEND Student in an Organized Health Care Education/Training Program
DX: F10.239 Alcohol dependence with withdrawal, unspecified (principal); G40.509 Epileptic seizures related to external causes, not intractable, without status epilepticus; E87.1 Hypo-osmolality and hyponatremia; F05 Delirium due to known physiological condition; R74.01 Elevation of levels of liver transaminase levels; I10 Essential (primary) hypertension; Y90.0 Blood alcohol level of less than 20 mg/100 ml; G25.0 Essential tremor; E86.1 Hypovolemia; E87.6 Hypokalemia; R39.2 Extrarenal uremia; F17.200 Nicotine dependence, unspecified, uncomplicated; Z79.899 Other long term (current) drug therapy; Z71.41 Alcohol abuse counseling and surveillance of alcoholic; Z91.148 Patient's other noncompliance with medication regimen for other reason
CPT/HCPCS: 36415; 80048; 80053; 80143; 80177; 80179; 80320; 83735; 83930; 83935; 84100; 84300; 84443; 85025; 85610; 93005; 96361; 96372; 96374; 96375; 96376; 99291